=== PATIENT | female | born 1965 | race American Indian/Alaskan Native ===

== ENCOUNTER 2016-11-23 03:45 | Inpatient (IN) | payer OTHER ==
[2016-11-23 04:44] LABS: Basophils % (Auto) 0.6 % (0.0-1.8); Eosinophils % (Auto) 3.5 % (0.0-4.3); Hematocrit 37.5 % (30.3-42.9); Hemoglobin 11.9 gm/dl (10.1-14.3); Mean Corpuscular HGB Conc 32 % (30-34); Mean Corpuscular Volume 76 fl (79-97); Platelet Count 284 K/mm3 (140-440); Red Blood Count 4.96 M/mm3 (3.65-5.03); Red Cell Distribution Width 16.7 % (13.2-15.2); White Blood Count 6.2 K/mm3 (4.5-11.0)
[2016-11-23 04:53] LABS: Mean Corpuscular Hemoglobin 24 pg (28-32)
[2016-11-23 05:01] LABS: Anion Gap 18 mmol/L; Blood Urea Nitrogen 16 mg/dL (7-17); Calcium 8.9 mg/dL (8.4-10.2); Carbon Dioxide 25 mmol/L (22-30); Chloride 100.2 mmol/L (98-107); Glucose 116 mg/dL (65-100); Potassium 3.6 mmol/L (3.6-5.0); Sodium 140 mmol/L (137-145)
[2016-11-23] MEDS ORDERED: BABY ASPIRIN PO ONE (05:39)
--- NOTE | 2016-11-23 10:33 | Emergency Department Report ---
ED Chest Pain HPI - General Chief Complaint: Chest Pain Stated Complaint: CHEST PAIN Time Seen by Provider: 11/23/16 10:20 Source: patient, RN notes reviewed, old records reviewed Mode of arrival: Ambulatory Limitations: No Limitations - History of Present Illness Initial Comments: This is a 51-year-old female. She is previously unknown to me. Her primary care doctor is Dr. Palacios. Past medical history includes hypertension, obesity, panic attacks. The patient presents to the ER complaining of chest pain. The chest pain is central, and left side of the chest wall. The patient reports that radiates to the back and neck. There is mild shortness of breath. There is mild nausea. There is no diaphoresis. The chest pain worsens with palpation, and decreases with rest. There is no leg pain. There is no leg swelling. No recent trips greater than 4 hours. No recent hospitalizations. The patient does report a recent [address] trip to [place]. The patient indicates that she thinks she had a negative exercise stress test in [place] at [facility]. She also thinks that she may have had a negative stress test with Dr. Orellana, but she is not certain. MD Complaint: chest pain -: Gradual Onset: during rest Pain Location: left chest Pain Radiation: back, neck Severity scale (0 -10): 5 Quality: aching Improves With: rest Worsens With: palpation re: vomting, dyspnea Treatments Prior to Arrival: none Aspirin use within the Past 7 Days: (1) Yes (given asa in the er prior to my arrival) - Related Data Home Medications Medication Instructions Recorded Confirmed Last Taken Fexofenadine HCl 180 mg PO DAILY 11/23/16 11/23/16 11/22/16 Hydrochlorothiazide [HCTZ] 25 mg PO DAILY PRN 11/23/16 11/23/16 11/22/16 busPIRone [Buspar] 15 mg PO DAILY 11/23/16 11/23/16 11/22/16 Allergies Allergy/AdvReac Type Severity Reaction Status Date / Time amoxicillin [Amoxicillin] Allergy Shortness Verified 04/10/15 02:49 of Breath ampicillin Allergy Shortness Verified 04/10/15 02:49 of Breath codeine Allergy Shortness Verified 04/10/15 02:49 of Breath guaifenesin [From Robitussin] Allergy Swelling Verified 04/10/15 02:49 loperamide HCl Allergy Rash Verified 04/10/15 02:49 [From Imodium A-D] morphine Allergy Shortness Verified 04/10/15 02:49 of Breath Penicillins Allergy Shortness Verified 04/10/15 02:49 of Breath Sulfa (Sulfonamide Allergy Hives Verified 04/10/15 02:49 Antibiotics) Tetracyclines Allergy Shortness Verified 04/10/15 02:49 of Breath nyquill Allergy Rash Uncoded 04/10/15 02:49 ALBER score - Alber Score Age > 65: (0) No Aspirin use within the Past 7 Days: (0) No 3 or more CAD Risk Factors: (0) No 2 or more Angina events in past 24 hrs: (1) Yes Known CAD with more than 50% Stenosis: (0) No Elevated Cardiac Markers: (0) No ST Deviation Greater than 0.5mm: (0) No ALBER Score: 1 ED Review of Systems ROS: Stated complaint: CHEST PAIN Other details as noted in HPI Constitutional: malaise. denies: diaphoresis Eyes: denies: vision change ENT: denies: epistaxis Respiratory: shortness of breath Cardiovascular: chest pain Gastrointestinal: denies: abdominal pain Genitourinary: denies: dysuria Musculoskeletal: denies: back pain Skin: denies: lesions Neurological: denies: weakness Psychiatric: denies: depression ED Past Medical Hx - Past Medical History Hx Hypertension: Yes (no meds) Hx Heart Attack/AMI: No Hx GERD: Yes Hx Liver Disease: No Hx Renal Disease: No Hx Seizures: No Hx Psychiatric Treatment: Yes (panic attacks) Hx Asthma: Yes (seasonal) Hx COPD: No Hx HIV: No Additional medical history: lymph nodes - Surgical History Hx Cholecystectomy: Yes () Hx Breast Surgery: Yes Additional Surgical History: csection x 2, breast reduction / lymph node removal w skin graft - Social History Smoking Status: Never Smoker Substance Use Type: None - Medications Home Medications: Home Medications Medication Instructions Recorded Confirmed Last Taken Type Fexofenadine HCl 180 mg PO DAILY 11/23/16 11/23/16 11/22/16 History Hydrochlorothiazide [HCTZ] 25 mg PO DAILY PRN 11/23/16 11/23/16 11/22/16 History busPIRone [Buspar] 15 mg PO DAILY 11/23/16 11/23/1617 History ED Physical Exam - General Limitations: No Limitations General appearance: alert, in no apparent distress - Head Head exam: Present: atraumatic, normocephalic - Eye Eye exam: Present: normal appearance, EOMI. Absent: nystagmus - ENT ENT exam: Present: normal exam, normal orophraynx, mucous membranes moist, normal external ear exam - Neck Neck exam: Present: normal inspection, full ROM. Absent: tenderness, meningismus - Respiratory Respiratory exam: Present: normal lung sounds bilaterally, chest wall tenderness. Absent: respiratory distress, wheezes, rales, rhonchi, stridor, accessory muscle use, decreased breath sounds - Cardiovascular Cardiovascular Exam: Present: regular rate, normal rhythm, normal heart sounds. Absent: bradycardia, tachycardia, irregular rhythm, systolic murmur, diastolic murmur, rubs, gallop - GI/Abdominal GI/Abdominal exam: Present: soft, normal bowel sounds. Absent: distended, tenderness, guarding, rebound, rigid, pulsatile mass - Extremities Exam Extremities exam: Present: normal inspection, full ROM, normal capillary refill. Absent: tenderness, pedal edema, joint swelling, calf tenderness - Back Exam Back exam: Present: normal inspection, full ROM. Absent: tenderness, CVA tenderness (R), CVA tenderness (L), muscle spasm, paraspinal tenderness, vertebral tenderness - Neurological Exam Neurological exam: Present: alert, oriented X3, normal gait, other (Extraocular movements intact. Tongue midline. No facial droop. Facial sensation intact to light touch in the V1, V2, V3 distribution bilaterally. 5 and 5 strength in 4 extremities.. Sensation is intact to light touch in 4 extremities.). Absent : motor sensory deficit - Psychiatric Psychiatric exam: Present: normal affect, normal mood - Skin Skin exam: Present: warm, dry, intact, normal color. Absent: rash ED Course Vital Signs 11/23/16 11/23/16 11/23/16 04:05 08:17 09:18 Temperature 97.9 F Pulse Rate 67 64 Respiratory 20 18 14 Rate Blood Pressure 150/79 Blood Pressure 150/79 [Left] O2 Sat by Pulse 99 100 Oximetry 11/23/16 11/23/16 11/23/16 09:20 09:30 09:40 Temperature Pulse Rate 63 61 59 L Respiratory 23 12 20 Rate Blood Pressure 164/77 164/77 164/77 Blood Pressure [Left] O2 Sat by Pulse 97 98 98 Oximetry 11/23/16 11/23/16 11/23/16 09:50 10:00 10:10 Temperature Pulse Rate 61 64 63 Respiratory 16 29 H 9 L Rate Blood Pressure 164/77 149/87 149/87 Blood Pressure [Left] O2 Sat by Pulse 97 95 97 Oximetry 11/23/16 11/23/16 11/23/16 10:20 10:40 10:50 Temperature Pulse Rate 64 69 Respiratory 15 12 31 H Rate Blood Pressure 149/87 149/87 149/87 Blood Pressure [Left] O2 Sat by Pulse 98 98 95 Oximetry 11/23/16 11/23/16 11/23/16 11:00 11:10 11:20 Temperature Pulse Rate Respiratory 18 14 12 Rate Blood Pressure 146/82 149/87 149/87 Blood Pressure [Left] O2 Sat by Pulse 96 98 98 Oximetry 11/23/16 11/23/16 11/23/16 11:30 11:40 11:50 Temperature Pulse Rate Respiratory 27 H 26 H 19 Rate Blood Pressure 149/87 149/87 146/82 Blood Pressure [Left] O2 Sat by Pulse 97 98 97 Oximetry 11/23/16 12:00 Temperature Pulse Rate Respiratory 12 Rate Blood Pressure 146/82 Blood Pressure [Left] O2 Sat by Pulse 98 Oximetry - Reevaluation(s) Reevaluation #1: 11/23/16 11:07 differential diagnosis: acs, costochronditis, pneumonia, GERD, gastritis, pulmonary embolus, anxiety Assessment and plan: 51-year-old female with chest pain, and a few vascular risk factors. Chest pain has some clinically atypical aspects and some clinically atypical aspects. There is a reproducible component. Multiple negative troponins. EKG is nonspecific. We do not have access to her old stress test, she has had negative CT scans in the past that have been negative for pulmonary embolus. She is low risk by well's criteria. We will consult cardiology, Dr. Jake Marin, practitioner. I am waiting for their recommendations for acute coronary syndrome risk stratification. Reevaluation #2: 11/23/16 11:29 Cardiology cannot find any medical records. They recommend admission to the hospital for echocardiogram, stress test. They will follow. Case is discussed with the Hospital physician, Dr. Browning, who accepts patient to his service. D-dimer is still pending. Patient to remain in the ER pending results of the d-dimer. ED Medical Decision Making - Lab Data Result diagrams: 11/23/16 04:24 11/23/16 04:24 Vital Signs 11/23/16 11/23/16 11/23/16 04:05 08:17 09:18 Temperature 97.9 F Pulse Rate 67 64 Respiratory 20 18 14 Rate Blood Pressure 150/79 Blood Pressure 150/79 [Left] O2 Sat by Pulse 99 100 Oximetry 11/23/16 11/23/16 09:20 09:30 Temperature Pulse Rate 63 61 Respiratory 23 12 Rate Blood Pressure 164/77 164/77 Blood Pressure [Left] O2 Sat by Pulse 97 98 Oximetry Vital Signs 11/23/16 11/23/16 11/23/16 04:05 08:17 09:18 Temperature 97.9 F Pulse Rate 67 64 Respiratory 20 18 14 Rate Blood Pressure 150/79 Blood Pressure 150/79 [Left] O2 Sat by Pulse 99 100 Oximetry 11/23/16 11/23/16 09:20 09:30 Temperature Pulse Rate 63 61 Respiratory 23 12 Rate Blood Pressure 164/77 164/77 Blood Pressure [Left] O2 Sat by Pulse 97 98 Oximetry Lab Results 11/23/16 11/23/16 11/23/16 Range/Units 04:24 04:24 07:17 WBC 6.2 (4.5-11.0) K/mm3 RBC 4.96 (3.65-5.03) M/mm3 Hgb 11.9 (10.1-14.3) gm/dl Hct 37.5 (30.3-42.9) % MCV 76 L (79-97) fl MCH 24 L (28-32) pg MCHC 32 (30-34) % RDW 16.7 H (13.2-15.2) % Plt Count 284 (140-440) K/mm3 Lymph % (Auto) 29.1 (13.4-35.0) % [place] % (Auto) 7.0 (0.0-7.3) % Eos % (Auto) 3.5 (0.0-4.3) % Baso % (Auto) 0.6 (0.0-1.8) % Lymph # 1.8 (1.2-5.4) K/mm3 [place] # 0.4 (0.0-0.8) K/mm3 Eos # 0.2 (0.0-0.4) K/mm3 Baso # 0.0 (0.0-0.1) K/mm3 Seg Neutrophils % 59.8 (40.0-70.0) % Seg Neutrophils # 3.7 (1.8-7.7) K/mm3 Sodium 140 (137-145) mmol/L Potassium 3.6 (3.6-5.0) mmol/L Chloride 100.2 (98-107) mmol/L Carbon Dioxide 25 (22-30) mmol/L Anion Gap 18 mmol/L BUN 16 (7-17) mg/dL Creatinine 0.8 (0.7-1.2) mg/dL Estimated GFR > 60 ml/min BUN/Creatinine Ratio 20.00 % Glucose 116 H (65-100) mg/dL Calcium 8.9 (8.4-10.2) mg/dL Troponin T < 0.010 < 0.010 (0.00-0.029) ng/mL 11/23/16 Range/Units 10:10 WBC (4.5-11.0) K/mm3 RBC (3.65-5.03) M/mm3 Hgb (10.1-14.3) gm/dl Hct (30.3-42.9) % MCV (79-97) fl MCH (28-32) pg MCHC (30-34) % RDW (13.2-15.2) % Plt Count (140-440) K/mm3 Lymph % (Auto) (13.4-35.0) % [place] % (Auto) (0.0-7.3) % Eos % (Auto) (0.0-4.3) % Baso % (Auto) (0.0-1.8) % Lymph # (1.2-5.4) K/mm3 [place] # (0.0-0.8) K/mm3 Eos # (0.0-0.4) K/mm3 Baso # (0.0-0.1) K/mm3 Seg Neutrophils % (40.0-70.0) % Seg Neutrophils # (1.8-7.7) K/mm3 Sodium (137-145) mmol/L Potassium (3.6-5.0) mmol/L Chloride (98-107) mmol/L Carbon Dioxide (22-30) mmol/L Anion Gap mmol/L BUN (7-17) mg/dL Creatinine (0.7-1.2) mg/dL Estimated GFR ml/min BUN/Creatinine Ratio % Glucose (65-100) mg/dL Calcium (8.4-10.2) mg/dL Troponin T < 0.010 (0.00-0.029) ng/mL - EKG Data 11/23/16 11:11 EKG #1: Normal sinus, 83 bpm, normal axis, QTC 451 ms, atrial enlargement, nonspecific T-wave abnormality, not morphologically consistent with STEMI. EKG #2: Normal sinus, 62 bpm, normal axis, QTC 454 ms, not morphologically consistent with STEMI, EKGs appear to be unchanged from prior EKG from 2015. - Radiology Data Radiology results: report reviewed, image reviewed interpreted by me: Two-view x-ray of the chest is negative for acute disease CT scan of chest is negative for acute disease Critical care attestation.: If time is entered above; I have spent that time in minutes in the direct care of this critically ill patient, excluding procedure time. ED Disposition Clinical Impression: Chest pain, Dyspnea Disposition: OP ADMITTED IP TO THIS HOSP Is pt being admited?: Yes Condition: Good
--- NOTE | 2016-11-23 11:07 | XRay Report ---
CHEST 2 VIEWS INDICATION: Chest pain, left-sided. COMPARISON: 07/09/2016 FINDINGS: PA and lateral chest radiographs demonstrate limited inspiration with mild exaggerated cardiomediastinal silhouette and mildly crowded markings centrally and some toward the bases. No dense focal consolidation, pleural effusion or CHF however. Stable mild bony degenerative changes. Probable cholecystectomy clips. CONCLUSION: No acute chest process or significant interval change, as described. Thank you for the opportunity to participate in this patient's care.
--- NOTE | 2016-11-23 11:49 | Admit Criteria Form ---
Admission Criteria Documentation: CARDIOLOGY GRG Clinical Indications for Admission to Inpatient Care ( Place 'X' for any and all applicable criteria): Hospital admission is needed for appropriate care of the patient because of ANY ONE of the following (1): [ ] I. Hemodynamic instability as indicated by ALL of the following (1)(2)(3) (4)(5) [ ]a) Vital signs or other findings not as expected for chronic patient condition or baseline [ ]b) Instability indicated by ANY ONE of the following: [ ]i) Hypotension [ ]ii) Symptomatic Tachycardia unresponsive to treatment ( e.g., analgesia, fluids, sedation as indicated) [ ]iii) Inadequate perfusion indicated by ANY ONE of the following: [ ] 1) Lactic acidosis (> 2 mmol/L) [ ] 2) New abnormal capillary refill (> 3 seconds) [ ] 3) Reduced urine output [ ] 4) New altered mental status [ ]iv) Orthostatic vital sign changes unresponsive to treatment (e.g., fluids) [ ]v) IV inotropic or vasopressor medication required to maintain adequate blood pressure or perfusion [ ] II. Severe heart failure as indicated by ANY ONE of the following(17)(18) [ ]a) Respiratory distress [ ]b) Hypotension [ ]c) Anasarca (refractory to outpatient therapy) [ ]d) Cardiac arrhythmias of immediate concern [ ]e) Myocardial ischemia [ ] III. Cardiac arrhythmias or findings of immediate concern indicated by ANY ONE of the following (19)(20): [ ] a) Heart rhythms that are inherently dangerous or unstable indicated by ANY ONE of the following (21)(22)(23): [ ] i) Resuscitated ventricular fibrillation or cardiac arrest [ ] ii) Ventricular escape rhythm [ ] iii) Sustained ventricular tachycardia (30 seconds or more of ventricular rhythm at greater than 100 beats per minute) [ ] iv) Nonsustained ventricular tachycardia and ANY ONE of the following: [ ] 1) Suspected cardiac ischemia as cause or consequence of ventricular tachycardia [ ] 2) In setting of acute myocarditis [ ] b) Unstable cardiac conduction defects indicated by ANY ONE of the following(23)(24)(25) [ ] i) Type II second-degree atrioventricular block [ ]ii) Third-degree atrioventricular block [ ]iii) New-onset left bundle branch block with suspected myocardial ischemia [ ]c) Any heart rhythm and ANY ONE of the following (21)(22)(26)(27) (28) [ ] i) Continuous long-term ECG monitoring needed (e.g., initiation of drug requiring monitoring for more than 24 hours) [ ] ii) Patient has automatic implanted cardioverter defibrillator that is repeatedly firing, malfunctioning, or in need of immediate adjustment of settings beyond the scope of ambulatory or observation care [ ]d) Heart rhythms of concern due to ANY ONE of the following: [ ] i) Hypotension [ ] ii) Respiratory distress [ ] iii) Association with other significant symptoms (e.g., bradycardia with syncope or ongoing dizziness, supraventricular tachycardia with chest pain (14)(15)(17) [ ] IV. Monitoring for cardiac contusion beyond the scope of observation care needed [A](30)(31)(32) [ ] V. Surgical or device complication (e.g., valve replacement complication , pacemaker dysfunction) (35)(41)(44)(45)(46) [ ] . Inpatient palliative care needed. [B](49) Also use Inpatient Palliative Care Criteria [ ] VII. Nonbacterial thrombotic (marantic) endocarditis (36)(43)(47)(48) [x ] VIII. Cardiology condition, symptom, or finding for which emergency and observation care has failed or are not considered appropriate. [ ] IX. Acute valvular disease requiring inpatient as indicated by ANY ONE of the following (41) [ ]a) Acute valvular regurgitation (42) [ ]b) Noninfectious valvulitis (43) [ ]c) Obstructive valve thrombosis [ ]d) Paravalvular leak [ ]e) Other significant valvular disorder remaining after emergency or observation level of care (as appropriate) [ ]X. Pericardial disease requiring inpatient treatment as indicated by ANY ONE of the following (33)(34)(35)(36)(37) [ ]a) Suspected tamponade (38)(39)(40) [ ]b) Hemopericardium [ ]c) Other significant pericardial disorder remaining after emergency or observation level of care (as appropriate) [ ] XI. Cardiac ischemia beyond scope of emergency and observation care. [ ] XII. Hypertension requiring inpatient treatment as indicated by ANY ONE of the following (6)(7)(8) [ ]a) SBP greater than 220 mm Hg or DBP greater than 120 mmHg despite treatment [ ]b) SBP greater than 140 mm Hg or DBP greater than 100 mm Hg with evidence of acute end organ damage as indicated by ANY ONE of the following [ ] i) Altered mental status [ ] ii) Acute renal failure as indicated by new onset of ANY ONE of the following (9)(10)(11)(12)(13) [ ]1) 3-fold rise in serum creatinine from baseline [ ]2) Serum creatinine greater than 4 mg/dL ( 354 micromoles/L) with acute rise greater than 0.5 mg/dL (44.2 micromoles/L) [ ]3) Reduction of more than 75% in estimated glomerular filtration rate from baseline [ ]4) Estimated glomerular filtration rate less than 35 mL/min/1.73m2 (0.59 mL/sec/1.73m2) in child up to 18 years of age [ ]5) Cessation of urine output indicated by ALL of the following [ ]A. Adequate volume status [ ]B. Inadequate urine output as indicated by ANY ONE of the following [ ]a. Urine output less than 0.3 mL/kg/hr for 24 hours [ ]b. Anuria (urine output less than 0.1 mL/kg/hr) for 12 hours [ ] iii) Aortic dissection [ ] iv) Myocardial Ischemia [ ] v) Left ventricular heart failure [ ]vi) Retinal Hemorrhage [ ]vii) Other significant finding [ ]c) Hypertension in child requiring inpatient treatment as indicated by ALL of the following(14)(15)(16) [ ] i) Outpatient treatment not effective, not available, or not appropriate [ ]ii) SBP or DBP greater than 95th percentile for age [ ]iii) Evidence of acute end organ damage as indicated by ANY ONE of the following [ ]1) Altered mental status [ ]2) Acute renal failure as indicated by new onset of ANY ONE of the following(9)(10)(11)(12)(13) [ ]A. 3-fold rise in serum creatinine from baseline [ ]B. Serum creatinine greater than 4 mg/dL (354 micromoles/L) with acute rise greater than 0.5 mg/dL (44.2 micromoles/L) [ ]C. Reduction of more than 75% in estimated glomerular filtration rate from baseline [ ]D. Estimated glomerular filtration rate less than 35 mL/min/1.73m2 (0.59 mL/sec/1.73m2) in child up to 18 years of age [ ]E. Cessation of urine output indicated by ALL of the following [ ]a. Adequate volume status [ ]b. Inadequate urine output as indicated by ANY ONE of the following [ ]i) Urine output less than 0.3 mL/kg/hr for 24 hours [ ]ii) Anuria ( urine output less than 0.1 mL/kg/hr) for 12 hours [ ]3) Severe headache [ ]4) Visual disturbance [ ]5) Retinal hemorrhage [ ]6) Other significant finding [ ]XIII. Complications of transplanted heart indicated by ANY ONE of the following(61): [ ]a) Acute graft rejection requiring inpatient management (eg, intravenous immunosuppression)(62)(63) [ ]b) Acute graft heart failure indicated by ANY ONE of the following(64): [ ]i) Hemodynamic instability [ ]ii) Cardiac arrhythmias of immediate concern [ ]iii) Pulmonary edema that is very severe (eg, mechanical ventilation needed, imminent or likely, need for 100% oxygen to keep oxygen saturation above 90%) [ ]iv) Pulmonary edema that is persistent as indicated by ALL of the following: [ ]1) New need for oxygen therapy to keep oxygen saturation above 90% (or increased FiO2 need from baseline) [ ]2) Has not improved sufficiently with emergency department or observation care IV diuretics or other heart failure treatments[E] [ ]v) Altered mental status that is severe or persistent [ ]vi) Increased creatinine (new on laboratory test) with reduction of more than 50% in estimated glomerular filtration rate from baseline [ ]vii) Progressively (ongoing) rising creatinine (known from past laboratory test) with reduction of more than 25% in estimated glomerular filtration rate from baseline [ ]viii) Acute renal failure [ ]ix) Acute peripheral ischemia (eg, examination shows pulseless, cool, mottled, or cyanotic extremity) [ ]x) Pulmonary artery catheter monitoring needed [ ]xi) Other sign or symptom of heart failure requiring inpatient treatment (ie, too severe or not responsive to outpatient and observation care treatment) [ ]c) Infection requiring inpatient management (eg, Hemodynamic instability, need for intravenous antimicrobial treatment)(66)(67)(68)(69)(70) [ ]d) Cardiac allograft vasculopathy requiring inpatient management ( eg evidence of cardiac ischemia)(71) [ ]e) Other complication of transplanted heart (eg, stroke, severe pulmonary hypertension, severe valvular dysfunction) requiring inpatient management(72) The original [facility] [employer] content created by [facility] has been revised. The portions of the content which have been revised are identified through the use of italic text or in bold, and [facility] has neither reviewed nor approved the modified material. All other unmodified content is copyright [facility] [employer]. Please see references footnoted in the original [facility] [employer] edition 2016 Admission Criteria Met: Yes
--- NOTE | 2016-11-23 11:55 | Admit Criteria Form ---
Admission Criteria Documentation: CHEST PAIN Clinical Indications for Admission to Inpatient Care (Place 'X' for any and all applicable criteria): Admission is indicated for chest pain and ANY ONE of the following(1)(2)(3)(4)(5 ): [ ]I. Angina with acute coronary syndrome (Also use Myocardial Infarction or Angina guideline) [ ]II. Hemodynamic instability [ ]III. Angina needing acute intervention as indicated by ALL of the following( 11)(12): [ ]a) Unstable angina is present as indicated by angina that is ANY ONE of the following: [ ]i) New onset [ ]ii) Nocturnal [ ]iii) Prolonged at rest [ ]iv) Progressive [ ]b) Angina warrants acute intervention as indicated by ANY ONE of the following: [ ]i) Recurrent angina (e.g, not responding as previously to treatment) [ ]ii) Angina at rest or with low-level activities despite initial medical therapy [ ]iii) New or presumably new ST-segment depression on ECG [ ]iv) Signs or symptoms of heart failure (eg, dyspnea, pulmonary edema) [ ]v) New or worsening mitral regurgitation [ ]vi) Hemodynamic instability [ ]vii) Dangerous arrhythmia (eg, sustained ventricular tachycardia) [ ]viii) History of percutaneous coronary intervention within 6 months [ ]ix) History of coronary artery bypass graft surgery [ ]x) ALBER risk score of 2 or greater[A] [ ]xi) History of Diabetes(14) [ ]xii) High-risk cardiac ischemia findings on noninvasive testing (e.g, echocardiogram, treadmill testing, nuclear scan) [ ]xiii) Chronic renal insufficiency (ie, estimated GFR less than 60 mL/min/1.732m) [ ]xiv) Left ventricular ejection fraction less than 40% [ ]IV. Evidence of DE (eg, cardiac biomarkers positive, ST-segment elevation on ECG) also use Myocardial Infarction Criteria Form. [ ]V. Pulmonary edema [ ]. Respiratory distress [ ]VII. Chest pain indicative of serious diagnosis other than coronary artery disease (eg, aortic dissection) [ ]VIII. Contraindications and/or Inappropriate clinical situations for Observational Care in patients with Chest Pain, when ANY ONE of the following is required: [ ]a) Patient with risk factor for pulmonary embolism, acute coronary syndrome and myocardial infarction (18) [ ]b) Patient with Pulmonary embolism require an average LOS of 4.3 days, therefore emergency department observation management is inappropriate 18,23 [ ]c) Painful condition/s in the elderly, have the highest rate of recidivism after emergency department observation management (10.8%) 20,21,22 [ ]d) Elevated cardiac biomarker requires intensive and exhaustive care (19) [ ]IX. General contraindications and/or Inappropriate clinical situations for Observational Care in patients with Chest Pain, when ANY ONE of the following is required: [ ]a) Prediction of prolongation of LOS based on ANY ONE of the following may be considered as a contraindication for observational care 2, 3, 4, 5, 6, 7, 8, 9, 10, 11 [ ]i) Age > 65 yrs. [ ]ii) Patient arriving by ambulance [ ]iii) Patient with high acuity [ ]iv) Patient requiring vital sign monitoring [ ]v) Patient on IV medication [ ]b) Systolic blood pressures 180mmHg 3,12 [ ]c) Patient with altered mental status including delirium and other alteration of consciousness, (3) [ ]d) Patient whose discharge disposition will be to a shelter home or rehabilitation home should not be managed in Emergency Department Observation Unit. CMS rule requires 3 days hospital stay before such placement. 3,13 [ ]e) Patient with failure to thrive due to broad array of etiologies 3,16,17 [ ]f) Inability to ambulate 3,14 Extended stay beyond goal length of stay may be needed for (1)(28): [ ]a) Specific condition diagnosed after evaluation (eg, pulmonary embolism, aortic dissection) [ ]b) Unstable angina [ ]c) Continued suspicion of acute coronary syndrome with inability to complete needed cardiac evaluation (eg, patient clinically unable to undergo stress testing) [ ]d) Myocardial infarction (Contents from ANGINA and CHEST PAIN clinical indications for admission to inpatient care have been integrated in this form) The original [email or web address] content created by [email or web address] has been revised. The portions of the content which have been revised are identified through the use of italic text or in bold, and [facility] has neither reviewed nor approved the modified material. All other unmodified content is copyright [email or web address]. Please see references footnoted in the original [employer] edition 2016
[2016-11-23 11:56] LABS: INR 0.96 (0.87-1.13)
[2016-11-23] MEDS ORDERED: ATIVAN ONE (12:16)
[2016-11-23] MEDS ORDERED: NACL ONE (12:21)
[2016-11-23] MEDS ORDERED: ATIVAN IV ONE (12:29)
--- NOTE | 2016-11-23 14:05 | Consultation ---
History of Present Illness Consult date: 11/23/16 Requesting physician: DMITRIY BOJORQUEZ Consult reason: chest pain History of present illness: The patient is a 51-year-old female with a past medical history significant for hypertension, obesity, and anxiety. She is previously unknown to our practice. She presented with complaints of chest pain and shortness of breath 1 day prior to arrival. She describes her chest pain as a nonexertional, left-sided, intermittent, stabbing pain which did at times radiated into her left shoulder. She noted this pain yesterday afternoon for a brief period and then the pain spontaneously resolved. Yesterday evening she noted new onset orthopnea when she got into bed. She experienced orthopnea through the night and this is what caused her to present to the emergency department for further evaluation and management. On evaluation, she denies any chest pain, palpitations, nausea, vomiting, diaphoresis, dizziness, or syncope. She denies any precipitating factors. She reports a 30 pound weight gain over the past 4 months due to dieting and exercise. She denies any recent difficulty or cardiac complaints with activity. The patient indicates that she thinks she had a negative exercise stress test in [place] at [facility]. Past History Past Medical History: hypertension, other (obesity; anxiety) Social history: , lives with family. denies: smoking, alcohol abuse, prescription drug abuse Medications and Allergies Allergies Allergy/AdvReac Type Severity Reaction Status Date / Time amoxicillin [Amoxicillin] Allergy Shortness Verified 04/10/15 02:49 of Breath ampicillin Allergy Shortness Verified 04/10/15 02:49 of Breath codeine Allergy Shortness Verified 04/10/15 02:49 of Breath guaifenesin [From Robitussin] Allergy Swelling Verified 04/10/15 02:49 loperamide HCl Allergy Rash Verified 04/10/15 02:49 [From Imodium A-D] morphine Allergy Shortness Verified 04/10/15 02:49 of Breath Penicillins Allergy Shortness Verified 04/10/15 02:49 of Breath Sulfa (Sulfonamide Allergy Hives Verified 04/10/15 02:49 Antibiotics) Tetracyclines Allergy Shortness Verified 04/10/15 02:49 of Breath nyquill Allergy Rash Uncoded 04/10/15 02:49 Home Medications Medication Instructions Recorded Confirmed Last Taken Type Fexofenadine HCl 180 mg PO DAILY 11/23/16 11/23/16 11/22/16 History Hydrochlorothiazide [HCTZ] 25 mg PO DAILY PRN 11/23/16 11/23/16 11/22/16 History busPIRone [Buspar] 15 mg PO DAILY 11/23/16 11/23/16 11/22/16 History Review of Systems Constitutional: weight loss (30 lbs over 4 months d/t diet and exercise ), no fever, no chills, no sweats Ears, nose, mouth and throat: no ear pain, no nose pain, no sinus pressure, no sinus pain Cardiovascular: chest pain, orthopnea, shortness of breath, no palpitations, no rapid/irregular heart beat, no edema, no syncope, no lightheadedness, no dyspnea on exertion Respiratory: shortness of breath, no cough, no dyspnea on exertion, no congestion, no wheezing, no pain Gastrointestinal: no abdominal pain, no nausea, no vomiting, no diarrhea, no constipation Genitourinary Female: no pelvic pain, no flank pain, no dysuria, no urinary frequency, no urgency Musculoskeletal: no neck stiffness, no neck pain, no shooting arm pain, no arm numbness/tingling, no low back pain, no shooting leg pain, no leg numbness/ tingling, no redness of joints Integumentary: no rash, no pruritis, no redness, no sores, no wounds Neurological: no paralysis, no weakness, no parathesias, no numbness, no tingling, no seizures Psychiatric: anxiety Endocrine: no cold intolerance, no heat intolerance Hematologic/Lymphatic: no easy bruising, no easy bleeding, no lymphadenopathy Allergic/Immunologic: no urticaria, no wheezing, no persistent infections Physical Examination Vital Signs Temp Pulse Resp BP Pulse Ox 97.9 F 67 20 150/79 99 11/23/16 04:05 11/23/16 04:05 11/23/16 04:05 11/23/16 04:05 11/23/16 04:05 General appearance: no acute distress HEENT: Positive: PERRL, Normocephaly, Mucus Membranes Moist Neck: Positive: neck supple, trachea midline Cardiac: Positive: Reg Rate and Rhythm, S1/S2 Lungs: Positive: Normal Exam, clear to auscultation, Normal Breath Sounds Neuro: Positive: Grossly Intact, Cranial Nerve 2-12 Intact Abdomen: Positive: Unremarkable, Soft, Active Bowel Sounds. Negative: Tender Skin: Positive: Clear. Negative: Rash, Wound Musculoskeletal: No Fluid Collection, No Pain, Normal Range of Motion Extremities: Present: normal, upper extr. pulses, lower extr. pulses. Absent: edema Results 11/23/16 04:24 11/23/16 04:24 - Imaging and Cardiology Echo: pending EKG: report reviewed, image reviewed EKG interpretations - Telemetry EKG Rhythm: Sinus Rhythm - EKG Sinus rhythms and dysrhythmias: sinus rhythm Repolarization changes or abnormalities: nonspecific abnormality, ST segment, and/or T wave Assessment and Plan Assessment: Chest pain, atypical - ECG with NAF; troponin negative for AMI x 2 sets; currently resolved. Dyspnea / orthopnea HTN Anxiety Obesity Plan: Obtain echo. Obtain fasting lipid panel in AM. Resume home HCTZ. Consider addition of CCB if necessary for BP optimization. Plan for stress test in AM pending pt remains clinically and hemodyncamically stable overnight. Assessment and plan reviewed with pt and pt's at bedside. The patient has been seen in conjunction with Dr. Hernández who agrees with the assessment and plan of care.
--- NOTE | 2016-11-23 14:05 | Cat Scan Report ---
CTA CHEST: History: Chest pain, shortness of breath. Technique: Helical CT following IV contrast. Pulmonary embolus protocol. Sagittal and coronal reformatted images. Rotational MIP images. Findings: Contrast bolus is slightly limited by body habitus. No pulmonary embolus is identified. The thyroid gland, tracheobronchial tree, esophagus, heart, pericardium, mediastinal vessels, lung newman and bony thorax are unremarkable. Impression: No evidence for pulmonary embolus. Unremarkable CT chest with contrast. The
[2016-11-23] MEDS ORDERED: HCTZ PO PRN (20:36)
[2016-11-23] MEDS ORDERED: NON-FORMULARY (Fexofenadine Hcl [Fexofenadine Hcl] 180 MG) PO SCH (20:45)
[2016-11-23] MEDS ORDERED: DULCOLAX PR PRN (20:47)
[2016-11-23] MEDS ORDERED: TYLENOL PO PRN (20:47)
[2016-11-23] MEDS ORDERED: MILK OF MAGNESIA PO PRN (20:47)
[2016-11-23] MEDS ORDERED: PERCOCET 5/325 PO PRN (20:47)
[2016-11-23] MEDS ORDERED: ZOFRAN IV PRN (20:47)
[2016-11-23] MEDS ORDERED: AMBIEN PO PRN (20:47)
[2016-11-23] MEDS ORDERED: MORPHINE IV PRN (20:47)
[2016-11-23] MEDS ORDERED: SODIUM CHLORIDE FLUSH SYRINGE 10 ML IV PRN (20:50)
--- NOTE | 2016-11-23 20:54 | Event Note ---
Date: 11/23/16 See H/p in reports Chest pain=r/o MT protocol DDX ACS/costochondritis/GERD Morbid obesity.
[2016-11-23] MEDS: CLARITIN PO SCH (22:15)
[2016-11-23] MEDS: BUSPAR PO SCH (22:16)
[2016-11-23 22:18] LABS: Creatine Kinase 186 units/L (30-135); Creatine Kinase MB 2.1 ng/mL (0.0-4.0)
--- NOTE | 2016-11-23 22:31 | History and Physical Report ---
CHIEF COMPLAINT: Left-sided chest pain. HISTORY OF PRESENT ILLNESS: This is a 51-year-old -Italian female, morbidly obese, hypertension, anxiety, who comes in for left-sided chest pain and shortness of breath of 1-day duration . Her chest pain is nonexertional, left-sided intermittent stabbing pain, which did at times radiated to the left shoulder. The pain is intermittent. Pain is about 5 on a scale of 1-10. Also, reported lost about 30 pounds in the last 4 months due to exercise. No shortness of breath on exertion present. PAST MEDICAL HISTORY: As mentioned, significant for hypertension, obesity, and anxiety disorder. SOCIAL HISTORY: , lives with family. Denies smoking, alcohol abuse, or prescription drug abuse. FAMILY HISTORY: Significant for hypertension. PAST SURGICAL HISTORY: None. CURRENT MEDICATIONS: Hydrochlorothiazide 25 mg once a day, BuSpar 15 mg once a day, fexofenadine 180 mg p.o. daily. ALLERGIES: PENICILLIN, MORPHINE AND SULFA DRUGS, TETRACYCLINE AND NYQUIL. REVIEW OF SYSTEMS: CONSTITUTIONAL: Lost about 30 pounds over 4 months due to diet and exercise. No fever, no chills, no sweats. HEENT: No sore throat. No postnasal drip. CARDIOVASCULAR: Chest pain present. Slight shortness of breath present. No palpitations. No diaphoresis. RESPIRATORY SYSTEM: Shortness of breath present. No cough, no dyspnea on exertion. No congestion. No wheezing. GASTROINTESTINAL: No nausea, no vomiting, no diarrhea. No constipation. GENITOURINARY SYSTEM: No flank pain, no urinary frequency, no urgency. MUSCULOSKELETAL SYSTEM: No neck stiffness. No neck pain, no shooting arm pain. INTEGUMENTARY: No rash, no pruritus, no redness, no thrush, no wounds. NEUROLOGIC SYSTEM: No paralysis, no weakness. No paresthesias. PSYCHIATRIC: No anxiety present. ENDOCRINE: No cold intolerance or heat intolerance. HEMATOLOGIC/LYMPHATIC: No easy bruising, no easy bleeding. No lymphadenopathy. ALLERGIES/IMMUNOLOGIC: No urticaria, no wheezing. No persistent infections. A 14-point review of systems was done. PHYSICAL EXAMINATION: GENERAL: Middle-aged female, well-developed, well-nourished, moderately obese, eating fast food lot of time during examination. VITAL SIGNS: Blood pressure is 138/69, temperature is 98.2, pulse is 71, respirations 20, O2 sats 94. HEENT: Unremarkable. Pupils equal and reactive. NECK: Supple, no lymphadenopathy, no thyromegaly. LUNGS: Clear to auscultation and percussion. Good air entry. CARDIOVASCULAR: S1, S2 heard. No gallop, no murmur, no rub. Apical impulse in left fifth intercostal space in midclavicular line. ABDOMEN: Soft and benign. No hepatosplenomegaly. No guarding, no rigidity. Hernial orifices are normal. EXTREMITIES: Good pedal pulses. No pedal edema. CENTRAL NERVOUS SYSTEM: Alert and oriented x 4. Nonfocal exam. SKIN: Normal. LABORATORY DATA: White count is 6200, H and H is 11.9 and 37.5, platelet count is 264. Protime is 12.7. INR is 0.96. D-dimer is 264.68. Sodium is 140, potassium is 3.6, chloride is 100, BUN and creatinine 16 and 0.8, glucose is 116, calcium is 8.9. Troponin is less than 0.010. EKG shows normal sinus rhythm, 62 per minute, left atrial enlargement. T-wave abnormalities. ASSESSMENT AND PLAN: 1. Chest pain, rule out myocardial infarction and differential diagnosis of costochondritis, gastroesophageal reflux disease, and acute coronary syndrome . I am more in favor of gastroesophageal reflux disease secondary to morbid obesity. We will start her on PPIs. 2. Hypertension. Continue hydrochlorothiazide. 3. Anxiety. Continue BuSpar. 4. Obesity. The patient is working on losing weight, the patient lost 30 pounds. Continue the same. 5. Deep venous thrombosis prophylaxis. Lovenox 40 mg subcutaneous daily. JOB# [id number] HUMAIRA/JAMES MCHUGH
[2016-11-24 03:47] LABS: Basophils % (Auto) 0.4 % (0.0-1.8); Hemoglobin 12.9 gm/dl (10.1-14.3); Mean Corpuscular HGB Conc 32 % (30-34); Mean Corpuscular Volume 75 fl (79-97); Platelet Count 306 K/mm3 (140-440); Red Blood Count 5.36 M/mm3 (3.65-5.03); Red Cell Distribution Width 16.8 % (13.2-15.2)
[2016-11-24 03:52] LABS: Mean Corpuscular Hemoglobin 24 pg (28-32)
[2016-11-24 04:03] LABS: Anion Gap 19 mmol/L; BUN/Creatinine Ratio 18.75; Blood Urea Nitrogen 15 mg/dL (7-17); Calcium 8.8 mg/dL (8.4-10.2); Carbon Dioxide 26 mmol/L (22-30); Chloride 98.5 mmol/L (98-107); Glucose 96 mg/dL (65-100); Potassium 3.6 mmol/L (3.6-5.0); Sodium 140 mmol/L (137-145)
[2016-11-24 04:05] LABS: Creatine Kinase MB 2.1 ng/mL (0.0-4.0)
[2016-11-24 04:08] LABS: Creatine Kinase 188 units/L (30-135)
[2016-11-24 04:40] LABS: Cholesterol 165 mg/dL (50-199); HDL Cholesterol 51 mg/dL (40-59); LDL Cholesterol,Direct 101 mg/dL (50-130); Triglycerides 65 mg/dL (2-149)
--- NOTE | 2016-11-24 09:59 | Discharge Summary ---
Providers - Providers Date of Admission: 11/23/16 11:30 Date of discharge: 11/24/16 Attending physician: CARLIE HARRISON MD 11/23/16 Consult to Cardiac Rehabilitation [CONS] Routine Reason For Exam: Phase I 11/23/16 20:47 Consult to Physician [CONS] Routine Consulting Provider: VJ ADAMS Reason For Exam: Chest pain Place consult to:: VJ ADAMS Notified:: Spoke with Kavita from answering service Phone number called:: [phone] Was contact made?: Yes If yes, spoke with:: Kavita Time called:: 06:21 Primary care physician: VOCATIONAL TECHNICAL EDUCATION DIRECTOR Hospitalization Reason for admission: chest pain Condition: Good Hospital course: Patient is a 51-year-old female with history of morbid obesity, anxiety, hypertension presented to the hospital complaining of left-sided chest pain or shortness of breath. Although she reports that this has been going on for about a week ago for evaluation she stated this has been ongoing for about a month. She had recently started what she calls a 6Scan Fast about 2 months ago. Cardiology was consulted to see the patient this although this was atypical. Patient did proceed to have a stress test reported that she was lost before being. We did discuss with cardiology and they felt pretty confident that this is noncardiac in nature and wanted to follow the patient's in the office in about a week or 2. Patient's symptoms also improve the pain was reproducible I believe this is more likely costochondritis. She is clinically stable at this time for discharge. She reports that she has lost about 20 pounds of weight since then and have fasting routine. I've also recommended that she gets routine laboratory exams to make sure her electrolytes are stable. I'll also recommended a sleep study outpatient. Discharge diagnosis * Atypical chest pain likely secondary to costochondritis * Morbid obesity BMI 52.5 * Hypertension * Anxiety * Obesity related hypoventilation syndrome Disposition: DISCHARGED TO HOME OR SELFCARE Time spent for discharge: 35 mins Core Measure Documentation - Palliative Care Palliative Care/ Comfort Measures: Not Applicable - Core Measures Any of the following diagnoses?: none - VTE Discharge Requirements Deep Vein Thrombosis/Pulmonary Embolism Present on Admission: No Exam - Physical Exam Narrative exam: VITAL SIGNS: Reviewed. GENERAL: The patient appeared well nourished and normally developed. Vital signs as documented. HEAD: No signs of head trauma. EYES: Pupils are equal. Extraocular motions intact. EARS: Hearing grossly intact. MOUTH: Oropharynx is normal. NECK: No adenopathy, no JVD. CHEST: Chest with clear breath sounds bilaterally. No wheezes, rales, or rhonchi. CARDIAC: Regular rate and rhythm. S1 and S2, without murmurs, gallops, or rubs. VASCULAR: No Edema. Peripheral pulses normal and equal in all extremities. ABDOMEN: Soft, without detectable tenderness. No sign of distention. No rebound or guarding, and no masses palpated. Bowel Sounds normal. MUSCULOSKELETAL: Good range of motion of all major joints. Extremities without clubbing, cyanosis or edema. NEUROLOGIC EXAM: Alert and oriented x 3. No focal sensory or strength deficits. Speech normal. Follows commands. PSYCHIATRIC: Mood normal. SKIN: No rash or lesions. - Constitutional Vitals: Temp Pulse Resp BP Pulse Ox 98 F 69 18 128/88 100 11/24/16 04:49 11/24/16 04:49 11/24/16 04:49 11/24/16 04:49 11/24/16 04:49 Plan Activity: advance as tolerated, fall precautions Diet: low fat Special Instructions: record daily weights, record daily BP diary Follow up with: VJ ADAMS MD [Staff Physician] - 7 Days RICO COOMBS MD [Primary Care Provider] - 3-5 Days ENID CORBIN MD [Staff Physician] - 7 Days
[2016-11-24] MEDS ORDERED: HCTZ PO SCH (10:00)
[2016-11-24 10:27] VITALS: BP 194/87
[2016-11-24] MEDS ORDERED: ATIVAN IV ONE (11:00)
--- NOTE | 2016-11-24 12:48 | Progress Note ---
Assessment and Plan Assessment: Chest pain, atypical - ECG with NAF; troponin negative for AMI x 2 sets; currently resolved. Dyspnea / orthopnea HTN Anxiety Obesity Plan: Echo reviewed with NAF. Pt refused stress test this AM d/t claustrophobia. Cont HCTZ, 25mg daily. Consider addition of CCB if necessary for BP optimization. Currently stable cardiac status. Pt may discharge home from cardiology standpoint. Follow up in our office with Deb Hall NP, within 1-2 weeks of hospital discharge ([phone]). Assessment and plan reviewed with pt and pt's at bedside. The patient has been seen in conjunction with Dr. Hernández who agrees with the assessment and plan of care. Subjective Date of service: 11/24/16 Principal diagnosis: chest pain Interval history: Pt seen in stress lab, anxious. States she is claustrophobic and cannot complete stress test despite receiving ativan. Objective Last Vital Signs Temp 97.9 F 11/24/16 08:00 Pulse 66 11/24/16 10:00 Resp 20 11/24/16 10:00 BP 194/87 11/24/16 08:00 Pulse Ox 98 11/24/16 08:00 - Physical Examination General: Appears Well HEENT: Positive: PERRL, Normocephaly, Mucus Membranes Moist Neck: Positive: neck supple, trachea midline Cardiac: Positive: Reg Rate and Rhythm, S1/S2 Lungs: Positive: Normal Exam, clear to auscultation, Normal Breath Sounds Neuro: Positive: Grossly Intact, Cranial Nerve 2-12 Intact Abdomen: Positive: Unremarkable, Soft, Active Bowel Sounds. Negative: Tender Skin: Positive: Clear. Negative: Rash, Wound Musculoskeletal: No Fluid Collection, No Pain, Normal Range of Motion Extremities: Present: normal, upper extr. pulses, lower extr. pulses. Absent: edema - Labs and Meds Cardiac Enzymes 11/23/16 11/24/16 Range/Units 21:17 03:23 CK-MB (CK-2) 2.1 2.1 (0.0-4.0) ng/mL Lipids 11/24/16 Range/Units 03:23 Triglycerides 65 (2-149) mg/dL Cholesterol 165 (50-199) mg/dL HDL Cholesterol 51 (40-59) mg/dL Cholesterol/HDL Ratio 3.23 % CBC 11/24/16 Range/Units 03:23 WBC 7.0 (4.5-11.0) K/mm3 RBC 5.36 H (3.65-5.03) M/mm3 Hgb 12.9 (10.1-14.3) gm/dl Hct 40.0 (30.3-42.9) % Plt Count 306 (140-440) K/mm3 Lymph # 2.4 (1.2-5.4) K/mm3 [place] # 0.4 (0.0-0.8) K/mm3 Eos # 0.2 (0.0-0.4) K/mm3 Baso # 0.0 (0.0-0.1) K/mm3 Comprehensive Metabolic Panel 11/24/16 Range/Units 03:23 Sodium 140 (137-145) mmol/L Potassium 3.6 (3.6-5.0) mmol/L Chloride 98.5 (98-107) mmol/L Carbon Dioxide 26 (22-30) mmol/L BUN 15 (7-17) mg/dL Creatinine 0.8 (0.7-1.2) mg/dL Glucose 96 (65-100) mg/dL Calcium 8.8 (8.4-10.2) mg/dL - Imaging and Cardiology EKG: report reviewed, image reviewed Echo: report reviewed - Telemetry EKG Rhythm: Sinus Rhythm - EKG Sinus rhythms and dysrhythmias: sinus rhythm Repolarization changes or abnormalities: nonspecific abnormality, ST segment, and/or T wave
[2016-11-24] MEDS: BUSPAR PO SCH (13:04)
[2016-11-24] MEDS: CLARITIN PO SCH (13:04)
[2016-11-25] MEDS ORDERED: HCTZ PO SCH (10:00)
== END 2016-11-24 14:34 | disposition home or self-care (01) | DRG 206 ==
LOC: ED 03:45 → 4A 11:30
PROVIDERS: ADMIT Internal Medicine; ATTEND Internal Medicine
DX: M94.0 Chondrocostal junction syndrome [Tietze] (principal); Z68.43 Body mass index [BMI] 50.0-59.9, adult; E66.2 Morbid (severe) obesity with alveolar hypoventilation; I10 Essential (primary) hypertension; F41.9 Anxiety disorder, unspecified; K21.9 Gastro-esophageal reflux disease without esophagitis; Z90.49 Acquired absence of other specified parts of digestive tract; Z88.6 Allergy status to analgesic agent; Z88.1 Allergy status to other antibiotic agents; Z88.0 Allergy status to penicillin; Z88.2 Allergy status to sulfonamides; Z82.49 Family history of ischemic heart disease and other diseases of the circulatory system
CPT/HCPCS: 36415; 71020; 71275; 80048; 80061; 82550; 82553; 84484; 85025; 85379; 85610; 93005; 93010; 93306; 96374; J2060; Q9967

== ENCOUNTER 2016-11-26 00:54 | Emergency (ER) | payer OTHER ==
[2016-11-26 02:03] LABS: Basophils % (Auto) 0.5 % (0.0-1.8); Eosinophils % (Auto) 3.4 % (0.0-4.3); Hematocrit 39.1 % (30.3-42.9); Hemoglobin 12.5 gm/dl (10.1-14.3); Mean Corpuscular HGB Conc 32 % (30-34); Mean Corpuscular Volume 75 fl (79-97); Platelet Count 317 K/mm3 (140-440); Red Cell Distribution Width 16.5 % (13.2-15.2); White Blood Count 6.8 K/mm3 (4.5-11.0)
[2016-11-26 02:25] LABS: BUN/Creatinine Ratio 16.25; Blood Urea Nitrogen 13 mg/dL (7-17); Calcium 9.2 mg/dL (8.4-10.2); Carbon Dioxide 28 mmol/L (22-30); Glucose 101 mg/dL (65-100)
[2016-11-26 02:26] LABS: Anion Gap 15 mmol/L; Chloride 99.7 mmol/L (98-107); Sodium 139 mmol/L (137-145)
[2016-11-26 02:34] LABS: Mean Corpuscular Hemoglobin 24 pg (28-32)
[2016-11-26 03:36] LABS: Bilirubin,Urine NEG (Negative); Blood,Urine SM (Negative); Ketones,Urine NEG (Negative); Leukocyte Esterase,Urine NEG (Negative); Mucus,Urine FEW /HPF; Nitrite,Urine NEG (Negative); Protein,Urine <15 mg/dL mg/dL (Negative); Urobilinogen,Urine < 2.0 mg/dL (<2.0); WBC,Urine < 1.0 /HPF (0.0-6.0)
[2016-11-26 04:23] VITALS: BP 129/61
--- NOTE | 2016-11-30 11:07 | ED Elopement Review ---
ED Pt Elopement review - Results review Lab results: Laboratory Tests 11/26/16 11/26/16 11/26/16 01:48 01:48 02:46 WBC 6.8 RBC 5.20 H Hgb 12.5 Hct 39.1 MCV 75 L MCH 24 L MCHC 32 RDW 16.5 H Plt Count 317 Lymph % (Auto) 34.4 [place] % (Auto) 8.3 H Eos % (Auto) 3.4 Baso % (Auto) 0.5 Lymph # 2.3 [place] # 0.6 Eos # 0.2 Baso # 0.0 Seg Neutrophils % 53.4 Seg Neutrophils # 3.6 Sodium 139 Potassium 4.0 Chloride 99.7 Carbon Dioxide 28 Anion Gap 15 BUN 13 Creatinine 0.8 Estimated GFR > 60 BUN/Creatinine Ratio 16.25 Glucose 101 H Calcium 9.2 Troponin T < 0.010 Urine Color Yellow Urine Turbidity Clear Urine pH 5.0 Ur Specific [place] 1.015 Urine Protein <15 mg/dl Urine Glucose (UA) Neg Urine Ketones Neg Urine Blood Sm Urine Nitrite Neg Ur Reducing Substances Not Reportable Urine Bilirubin Neg Urine Ictotest Not Reportable Urine Urobilinogen < 2.0 Ur Leukocyte Esterase Neg Urine WBC (Auto) < 1.0 Urine RBC (Auto) 1.0 U Epithel Cells (Auto) 1.0 Amorphous Crystals Few Urine Mucus Few Urine HCG, Qual Negative 11/26/16 04:26 WBC RBC Hgb Hct MCV MCH MCHC RDW Plt Count Lymph % (Auto) [place] % (Auto) Eos % (Auto) Baso % (Auto) Lymph # [place] # Eos # Baso # Seg Neutrophils % Seg Neutrophils # Sodium Potassium Chloride Carbon Dioxide Anion Gap BUN Creatinine Estimated GFR BUN/Creatinine Ratio Glucose Calcium Troponin T < 0.010 Urine Color Urine Turbidity Urine pH Ur Specific [place] Urine Protein Urine Glucose (UA) Urine Ketones Urine Blood Urine Nitrite Ur Reducing Substances Urine Bilirubin Urine Ictotest Urine Urobilinogen Ur Leukocyte Esterase Urine WBC (Auto) Urine RBC (Auto) U Epithel Cells (Auto) Amorphous Crystals Urine Mucus Urine HCG, Qual - Call Back decision Pt Call Back Decision: No action required
== END 2016-11-26 05:14 ==
LOC: ED 00:54
DX: R07.89 Other chest pain (principal); I10 Essential (primary) hypertension; J45.909 Unspecified asthma, uncomplicated; K21.9 Gastro-esophageal reflux disease without esophagitis; Z88.1 Allergy status to other antibiotic agents; Z88.2 Allergy status to sulfonamides; Z88.0 Allergy status to penicillin; Z88.5 Allergy status to narcotic agent; Z88.8 Allergy status to other drugs, medicaments and biological substances; Z53.21 Procedure and treatment not carried out due to patient leaving prior to being seen by health care provider
CPT/HCPCS: 36415; 80048; 81001; 81025; 84484; 85025; 93005; 93010

== ENCOUNTER 2016-11-27 22:56 | Emergency (ER) | payer SELFPAY ==
[2016-11-27 23:22] VITALS: BP 158/90
[2016-11-27 23:44] LABS: Basophils % (Auto) 0.5 % (0.0-1.8); Eosinophils % (Auto) 3.6 % (0.0-4.3); Hemoglobin 12.1 gm/dl (10.1-14.3); Mean Corpuscular HGB Conc 32 % (30-34); Mean Corpuscular Volume 76 fl (79-97); Platelet Count 337 K/mm3 (140-440); Red Blood Count 5.03 M/mm3 (3.65-5.03); Red Cell Distribution Width 16.5 % (13.2-15.2); White Blood Count 7.3 K/mm3 (4.5-11.0)
[2016-11-27 23:48] LABS: Mean Corpuscular Hemoglobin 24 pg (28-32)
[2016-11-27 23:57] LABS: Anion Gap 19 mmol/L; BUN/Creatinine Ratio 16.25; Blood Urea Nitrogen 13 mg/dL (7-17); Carbon Dioxide 27 mmol/L (22-30); Chloride 97.8 mmol/L (98-107); Glucose 114 mg/dL (65-100); Potassium 3.6 mmol/L (3.6-5.0); Sodium 140 mmol/L (137-145)
--- NOTE | 2016-11-30 11:18 | ED Elopement Review ---
ED Pt Elopement review - Results review Lab results: Laboratory Tests 11/27/16 11/27/16 23:26 23:26 WBC 7.3 RBC 5.03 Hgb 12.1 Hct 38.0 MCV 76 L MCH 24 L MCHC 32 RDW 16.5 H Plt Count 337 Lymph % (Auto) 29.7 [place] % (Auto) 7.5 H Eos % (Auto) 3.6 Baso % (Auto) 0.5 Lymph # 2.2 [place] # 0.5 Eos # 0.3 Baso # 0.0 Seg Neutrophils % 58.7 Seg Neutrophils # 4.3 Sodium 140 Potassium 3.6 Chloride 97.8 L Carbon Dioxide 27 Anion Gap 19 BUN 13 Creatinine 0.8 Estimated GFR > 60 BUN/Creatinine Ratio 16.25 Glucose 114 H Calcium 9.0 Troponin T < 0.010 - Call Back decision Pt Call Back Decision: No action required
== END 2016-11-28 00:30 | disposition left against medical advice (07) ==
LOC: ED 22:56
DX: R06.02 Shortness of breath (principal); R07.9 Chest pain, unspecified; R42 Dizziness and giddiness; R11.11 Vomiting without nausea; Z53.21 Procedure and treatment not carried out due to patient leaving prior to being seen by health care provider
CPT/HCPCS: 36415; 80048; 84484; 85025; 93005; 93010

== ENCOUNTER 2017-10-28 11:27 | Emergency (ER) | payer OTHER ==
[2017-10-28 13:14] LABS: Bilirubin,Urine NEG (Negative); Blood,Urine NEG (Negative); Color,Urine Yellow (Yellow); Protein,Urine <15 mg/dL mg/dL (Negative); Urobilinogen,Urine < 2.0 mg/dL (<2.0); WBC,Urine < 1.0 /HPF (0.0-6.0)
[2017-10-28 13:22] LABS: Hematocrit 38.3 % (30.3-42.9); Hemoglobin 12.2 gm/dl (10.1-14.3); Mean Corpuscular HGB Conc 32 % (30-34); Mean Corpuscular Volume 76 fl (79-97); Platelet Count 306 K/mm3 (140-440); Red Blood Count 5.03 M/mm3 (3.65-5.03)
[2017-10-28 13:23] LABS: Mean Corpuscular Hemoglobin 24 pg (28-32)
[2017-10-28 13:42] LABS: Alanine Aminotransferase 18 units/L (7-56); Albumin 3.6 g/dL (3.9-5); BUN/Creatinine Ratio 17; Blood Urea Nitrogen 12 mg/dL (7-17); Calcium 8.9 mg/dL (8.4-10.2); Hemolysis Index 17
[2017-10-28] MEDS ORDERED: ATIVAN PO ONE (16:39)
[2017-10-28] MEDS ORDERED: ANTIVERT PO ONE (16:39)
--- NOTE | 2017-10-28 16:45 | Emergency Department Report ---
HPI - General Chief Complaint: Dizziness Time Seen by Provider: 10/28/17 16:28 - HPI HPI: Room 7 The patient is a 52-year-old female presenting with a chief complaint of dizziness. The patient states for 4 weeks she has had intermittent dizziness. The patient states her primary physician increase her BuSpar bleed and it may be secondary to her anxiety. Patient states the symptoms have persisted. The patient states 2 days ago she went to the emergency department ([facility] ) for another episode of dizziness. Labs were within normal limits. The patient states this morning her dizziness. Worse as the room appeared to be spinning. The patient states she had episodes of nausea and vomiting in addition to diarrhea. Patient says she did not have a headache at the onset of her symptoms but has a headache now. The patient states the dizziness has improved somewhat but she still feels slightly dizzy. Patient denied any preceding chest pain, shortness of breath or headache. Location: Head Duration: [See above] Quality: Vertigo Severity: Moderate Modifying factors: [see above] Context: [see above] Mode of transportation: [not driving] ED Past Medical Hx - Past Medical History Hx Hypertension: Yes (no meds) Hx GERD: Yes Hx Psychiatric Treatment: Yes (panic attacks) Hx Asthma: Yes (seasonal) Additional medical history: lymph nodes - Surgical History Hx Cholecystectomy: Yes () Hx Breast Surgery: Yes Additional Surgical History: csection x 2, breast reduction / lymph node removal w skin graft - Family History Family history: no significant - Social History Smoking Status: Never Smoker Substance Use Type: None (denies illicit drug use) - Medications Home Medications: Home Medications Medication Instructions Recorded Confirmed Last Taken Type Fexofenadine HCl 180 mg PO DAILY 11/23/16 11/23/16 11/22/16 History Hydrochlorothiazide [HCTZ] 25 mg PO DAILY PRN 11/23/16 11/23/16 11/22/16 History busPIRone [Buspar] 15 mg PO DAILY 11/23/16 11/23/16 11/22/16 History Meclizine [Antivert] 25 mg PO TID PRN #20 tablet 10/28/17 Unknown Rx Ondansetron [Zofran ODT TAB] 8 mg PO Q8HR #20 tab.rapdis 10/28/17 Unknown Rx ED Review of Systems ROS: Stated complaint: SOB/DIZZY Other details as noted in HPI Respiratory: denies: shortness of breath Cardiovascular: denies: chest pain Gastrointestinal: nausea, vomiting, diarrhea Neurological: headache, vertigo Psychiatric: anxiety Physical Exam - Physical Exam Vital Signs: Vital Signs 10/28/17 12:26 Temperature 98 F Pulse Rate 67 Respiratory 16 Rate Blood Pressure 133/61 O2 Sat by Pulse 98 Oximetry Physical Exam: GENERAL: The patient is well-developed well-nourished female lying on stretcher not appearing to be in acute distress. [] HEENT: Normocephalic. Atraumatic. Extraocular motions are intact. Patient has moist mucous membranes. No nystagmus NECK: Supple. No meningitic signs are noted. There is no adenopathy noted. CHEST/LUNGS: Clear to auscultation. There is no respiratory distress noted. HEART/CARDIOVASCULAR: Regular. There is no tachycardia. There is no gallop rub or murmur. ABDOMEN: Abdomen is soft, nontender. Patient has normal bowel sounds. There is no abdominal distention. SKIN: There is no rash. There is no edema. There is no diaphoresis. NEURO: The patient is awake, alert, and oriented. The patient is cooperative. The patient has no focal neurologic deficits. The patient has normal speech. Cranial nerves II through XII grossly intact, motor. No dysmetria noted with finger to nose bilaterally MUSCULOSKELETAL: There is no evidence of acute injury. ED Course Vital Signs 10/28/17 12:26 Temperature 98 F Pulse Rate 67 Respiratory 16 Rate Blood Pressure 133/61 O2 Sat by Pulse 98 Oximetry - Reevaluation(s) Reevaluation #1: 10/28/17 18:39 Patient states she feels improved after medication. Studies discuss with patient. Strong warnings to return. Patient instructed she should follow up with neurologist ED Medical Decision Making - Lab Data Result diagrams: 10/28/17 12:38 10/28/17 12:38 Laboratory Tests 10/28/17 10/28/17 10/28/17 12:38 12:38 12:55 WBC 7.0 RBC 5.03 Hgb 12.2 Hct 38.3 MCV 76 L MCH 24 L MCHC 32 RDW 16.0 H Plt Count 306 Sodium 140 Potassium 3.9 Chloride 97.7 L Carbon Dioxide 29 Anion Gap 17 BUN 12 Creatinine 0.7 Estimated GFR > 60 BUN/Creatinine Ratio 17 Glucose 94 Calcium 8.9 Total Bilirubin 0.20 AST 21 ALT 18 Alkaline Phosphatase 83 Total Protein 7.8 Albumin 3.6 L Albumin/Globulin Ratio 0.9 Urine Color Yellow Urine Turbidity Clear Urine pH 6.0 Ur Specific Sidon 1.015 Urine Protein <15 mg/dl Urine Glucose (UA) Neg Urine Ketones Neg Urine Blood Neg Urine Nitrite Neg Urine Bilirubin Neg Urine Urobilinogen < 2.0 Ur Leukocyte Esterase Neg Urine WBC (Auto) < 1.0 Urine RBC (Auto) 1.0 U Epithel Cells (Auto) < 1.0 - EKG Data -: EKG Interpreted by Ok EKG shows normal: sinus rhythm Rate: normal - EKG Data When compared to previous EKG there are: changes noted Interpretation: nonspecific ST-T wave adam (Biphasic T waves in leads V5, V6 when compared to previous EKG dated 11/26/2016) - Radiology Data Radiology results: report reviewed (CT head), image reviewed (CT head) [place] [address] Cat Scan Report Signed Patient: ANNEL CORTÉS MR#: [id number] : 1965 Acct:[id number] Age/Sex: 52 / F ADM Date: 10/28/17 Loc: ED Attending Dr: Ordering Physician: KIMO HOUSTON MD Date of Service: 10/28/17 Procedure(s): CT head/brain wo con Accession Number(s): [id number] cc: KIMO HOUSTON MD FINAL REPORT PROCEDURE: CT HEAD/BRAIN WO CON TECHNIQUE: Computerized tomography of the head was performed without contrast material. HISTORY: dizziness COMPARISON: No prior studies are available for comparison. FINDINGS: Brain: Brain density appears normal. No evidence of intracranial hemorrhage. No parenchymal hemorrhage, mass lesions or mass effect are seen. No abnormal extraxial fluid collects or masses are seen. Ventricles: Ventricles are normal size and are midline. Bone Windows: No evidence of skull fracture. Paranasal sinuses: Clear Mastoid air cells: Clear IMPRESSION: Negative examination Transcribed By: DFN Dictated By: CLIFTON MIN MD Electronically Authenticated By: CLIFTON MIN MD Signed Date/Time: 10/28/171814 DD/ 14 TD/TT: 10/28/171814 - Differential Diagnosis vertigo, intracranial mass, cerebellar mass Critical care attestation.: If time is entered above; I have spent that time in minutes in the direct care of this critically ill patient, excluding procedure time. ED Disposition Clinical Impression: Vertigo Disposition: -01 TO HOME OR SELFCARE Is pt being admited?: No Does the pt Need Aspirin: No Condition: Stable Instructions: Vertigo (ED) Additional Instructions: Return to the emergency department immediately should you develop worsening symptoms, fever, inability to tolerate food or liquid or any other concerns. Prescriptions: Meclizine [Antivert] 25 mg PO TID PRN #20 tablet PRN Reason: Vertigo Ondansetron [Zofran ODT TAB] 8 mg PO Q8HR #20 tab.rapdis Referrals: PRIMARY CARE, [Primary Care Provider] - 3-5 Days MIS ARROYO MD [Staff Physician] - [facility] Time of Disposition: 18:39
[2017-10-28 16:54] LABS: Basophils % (Manual) 0 % (0.0-1.8); Total Cells Counted 100
[2017-10-28 16:55] LABS: Anisocytosis 1+; Platelet Estimate Consistent w Auto
[2017-10-28 17:22] LABS: Creatine Kinase MB 4.1 ng/mL (0.0-4.0)
--- NOTE | 2017-10-28 18:20 | Cat Scan Report ---
FINAL REPORT PROCEDURE: CT HEAD/BRAIN WO CON TECHNIQUE: Computerized tomography of the head was performed without contrast material. HISTORY: dizziness COMPARISON: No prior studies are available for comparison. FINDINGS: Brain: Brain density appears normal. No evidence of intracranial hemorrhage. No parenchymal hemorrhage, mass lesions or mass effect are seen. No abnormal extraxial fluid collects or masses are seen. Ventricles: Ventricles are normal size and are midline. Bone Windows: No evidence of skull fracture. Paranasal sinuses: Clear Mastoid air cells: Clear IMPRESSION: Negative examination
[2017-10-28 19:14] VITALS: BP 116/60
== END 2017-10-28 19:13 | disposition home or self-care (01) ==
LOC: ED 11:27
DX: R42 Dizziness and giddiness (principal); I10 Essential (primary) hypertension; K21.9 Gastro-esophageal reflux disease without esophagitis; J45.909 Unspecified asthma, uncomplicated
CPT/HCPCS: 36415; 70450; 80053; 81001; 82550; 82553; 84484; 85007; 85025

== ENCOUNTER 2018-01-07 00:55 | Inpatient (IN) | payer OTHER ==
--- NOTE | 2018-01-07 01:32 | XRay Report ---
FINAL REPORT PROCEDURE: XR CHEST ROUTINE 2V TECHNIQUE: PA and lateral chest radiographs were obtained. CPT 84939 HISTORY: Shortness of breath COMPARISON: 07/09/2016 FINDINGS: Heart: Normal. Mediastinum/Vessels: Normal. Lungs/Pleural space: Normal. Bony thorax: No acute osseous abnormality. Other: IMPRESSION: Normal examination.
[2018-01-07] MEDS ORDERED: PROVENTIL IH ONE ×3 (01:41→06:26)
[2018-01-07 01:48] LABS: Basophils % (Auto) 0.4 % (0.0-1.8); Hematocrit 38.6 % (30.3-42.9); Hemoglobin 12.4 gm/dl (10.1-14.3); Lymphocytes % (Auto) 11.5 % (13.4-35.0); Mean Corpuscular HGB Conc 32 % (30-34); Mean Corpuscular Volume 76 fl (79-97); Monocytes # (Auto) 0.7 K/mm3 (0.0-0.8); Red Blood Count 5.09 M/mm3 (3.65-5.03); Red Cell Distribution Width 16.5 % (13.2-15.2)
[2018-01-07] MEDS ORDERED: ATROVENT IH ONE ×3 (01:48→06:26)
[2018-01-07 01:49] LABS: Mean Corpuscular Hemoglobin 25 pg (28-32)
[2018-01-07 01:55] LABS: BUN/Creatinine Ratio 19; Blood Urea Nitrogen 13 mg/dL (7-17); Calcium 8.8 mg/dL (8.4-10.2); Hemolysis Index 6
[2018-01-07 02:46] LABS: Platelet Count 195 K/mm3 (140-440)
[2018-01-07] MEDS ORDERED: TESSALON PERLES PO ONE (06:26)
[2018-01-07] MEDS ORDERED: MAGNESIUM SULFATE 2GM/50ML 2 GM/50 ML BAG IV ONE (06:26)
--- NOTE | 2018-01-07 06:57 | Emergency Department Report ---
ED Shortness of Breath HPI - General Chief Complaint: Dyspnea/Respdistress Stated Complaint: URI SX Time Seen by Provider: 01/07/18 06:16 Source: patient, old records reviewed Mode of arrival: Ambulatory Limitations: No Limitations - History of Present Illness Initial Comments: 52-year-old female with a past medical history of seasonal allergy, hypertension , and panic attacks presents to the hospital complaining of cough productive of yellow sputum, wheezing, shortness of breath 1 week. Subjective fever at home. Pt was at [place] [facility] 3 days ago for the same complaints. She was diagnosed with acute bronchitis and discharged on Z-Vidal and prednisone 40 mg 5 days. Despite taking this medication patient had acutely worsening shortness of breath prior to arrival to feels better after receiving albuterol 5 and Atrovent 0.5 mg prior to my evaluation. Patient does have a home nebulizer machine. PMD: Dr. Palacios - Related Data Home Medications Medication Instructions Recorded Confirmed Last Taken Fexofenadine HCl 180 mg PO DAILY 11/23/16 11/23/16 11/22/16 Hydrochlorothiazide [HCTZ] 25 mg PO DAILY PRN 11/23/16 11/23/16 11/22/16 busPIRone [Buspar] 15 mg PO DAILY 11/23/16 11/23/16 11/22/16 Previous Rx's Medication Instructions Recorded Last Taken Type Meclizine [Antivert] 25 mg PO TID PRN #20 tablet 10/28/17 Unknown Rx Ondansetron [Zofran ODT TAB] 8 mg PO Q8HR #20 tab.rapdis 10/28/17 Unknown Rx Allergies Allergy/AdvReac Type Severity Reaction Status Date / Time amoxicillin [Amoxicillin] Allergy Shortness Verified 04/10/15 02:49 of Breath ampicillin Allergy Shortness Verified 04/10/15 02:49 of Breath codeine Allergy Shortness Verified 04/10/15 02:49 of Breath guaifenesin [From Robitussin] Allergy Swelling Verified 04/10/15 02:49 loperamide HCl Allergy Rash Verified 04/10/15 02:49 [From Imodium A-D] morphine Allergy Shortness Verified 04/10/15 02:49 of Breath Penicillins Allergy Shortness Verified 04/10/15 02:49 of Breath Sulfa (Sulfonamide Allergy Hives Verified 04/10/15 02:49 Antibiotics) Tetracyclines Allergy Shortness Verified 04/10/15 02:49 of Breath nyquill Allergy Rash Uncoded 04/10/15 02:49 ED Review of Systems ROS: Stated complaint: URI SX Other details as noted in HPI Comment: All other systems reviewed and negative ED Past Medical Hx - Past Medical History Previous Medical History?: Yes Hx Hypertension: Yes Hx Heart Attack/AMI: No Hx GERD: Yes Hx Liver Disease: No Hx Renal Disease: No Hx Seizures: No Hx Psychiatric Treatment: Yes (panic attacks) Hx Asthma: Yes (seasonal) Hx COPD: No Hx HIV: No Additional medical history: lymph nodes - Surgical History Past Surgical History?: Yes Hx Cholecystectomy: Yes () Hx Breast Surgery: Yes Additional Surgical History: csection x 2, breast reduction / lymph node removal w skin graft - Social History Smoking Status: Never Smoker Substance Use Type: None - Medications Home Medications: Home Medications Medication Instructions Recorded Confirmed Last Taken Type Fexofenadine HCl 180 mg PO DAILY 11/23/16 11/23/16 11/22/16 History Hydrochlorothiazide [HCTZ] 25 mg PO DAILY PRN 11/23/16 11/23/16 11/22/16 History busPIRone [Buspar] 15 mg PO DAILY 11/23/16 11/23/16 11/22/16 History Meclizine [Antivert] 25 mg PO TID PRN #20 tablet 10/28/17 Unknown Rx Ondansetron [Zofran ODT TAB] 8 mg PO Q8HR #20 tab.rapdis 10/28/17 Unknown Rx ED Physical Exam - General Limitations: No Limitations - Other Other exam information: General: No limitations, patient is alert in no acute distress Head exam: Atraumatic, normocephalic Eyes exam: Normal appearance ENT: Moist mucous membrane Neck exam: Normal inspection, full range of motion, no meningismus nontender Respiratory exam: Speaking comfortably, no accessory muscle use, bilateral expiratory wheezing and frequent cough Cardiovascular: Normal rate and rhythm, normal heart sounds Abdomen: Soft, nondistended, and nontender, with normal bowel sounds, no rebound, or guarding Extremity: Full range of motion normal inspection no deformity, no calf tenderness or edema Back: Normal Inspection, full range of motion, no tenderness Neurologic: Alert, oriented x3, cranial nerves intact, no motor or sensory deficit Psychiatric: normal affect, normal mood Skin: Warm, dry, intact ED Course Vital Signs 01/07/18 01/07/18 01/07/18 01:04 01:45 02:05 Temperature 97.8 F Pulse Rate 73 Pulse Rate [ 78 86 Posterior Bilateral] Respiratory 20 Rate Respiratory 20 18 Rate [Posterior Bilateral] Blood Pressure 213/85 Blood Pressure [Left] O2 Sat by Pulse 97 Oximetry 01/07/18 01/07/18 01/07/18 03:25 03:30 03:32 Temperature 98.5 F Pulse Rate 66 70 67 Pulse Rate [ Posterior Bilateral] Respiratory 19 17 20 Rate Respiratory Rate [Posterior Bilateral] Blood Pressure 138/64 Blood Pressure 119/35 [Left] O2 Sat by Pulse 97 80 L 96 Oximetry 01/07/18 01/07/18 01/07/18 04:00 04:30 05:00 Temperature Pulse Rate 72 62 64 Pulse Rate [ Posterior Bilateral] Respiratory 20 25 H 25 H Rate Respiratory Rate [Posterior Bilateral] Blood Pressure 137/73 143/72 142/79 Blood Pressure [Left] O2 Sat by Pulse 96 91 92 Oximetry 01/07/18 01/07/18 06:38 07:40 Temperature Pulse Rate 94 H Pulse Rate [ 68 Posterior Bilateral] Respiratory 18 Rate Respiratory 18 Rate [Posterior Bilateral] Blood Pressure Blood Pressure 144/62 [Left] O2 Sat by Pulse 94 Oximetry - Reevaluation(s) Reevaluation #1: 01/07/18 08:32 pt given Mag, solumedrol and additional nebs, pt reports feeling a little better but wheezing persists ED Medical Decision Making - Lab Data Result diagrams: 01/07/18 01:06 01/07/18 01:06 Lab Results 01/07/18 01/07/18 Range/Units 01:06 01:06 WBC 8.5 (4.5-11.0) K/mm3 RBC 5.09 H (3.65-5.03) M/mm3 Hgb 12.4 (10.1-14.3) gm/dl Hct 38.6 (30.3-42.9) % MCV 76 L (79-97) fl MCH 25 L (28-32) pg MCHC 32 (30-34) % RDW 16.5 H (13.2-15.2) % Plt Count 195 (140-440) K/mm3 Lymph % (Auto) 11.5 L (13.4-35.0) % Foard % (Auto) 8.0 H (0.0-7.3) % Eos % (Auto) 0.0 (0.0-4.3) % Baso % (Auto) 0.4 (0.0-1.8) % Lymph # 1.0 L (1.2-5.4) K/mm3 Foard # 0.7 (0.0-0.8) K/mm3 Eos # 0.0 (0.0-0.4) K/mm3 Baso # 0.0 (0.0-0.1) K/mm3 Seg Neutrophils % 80.1 H (40.0-70.0) % Seg Neutrophils # 6.8 (1.8-7.7) K/mm3 Sodium 136 L (137-145) mmol/L Potassium 3.6 (3.6-5.0) mmol/L Chloride 95.4 L (98-107) mmol/L Carbon Dioxide 26 (22-30) mmol/L Anion Gap 18 mmol/L BUN 13 (7-17) mg/dL Creatinine 0.7 (0.7-1.2) mg/dL Estimated GFR > 60 ml/min BUN/Creatinine Ratio 19 % Glucose 119 H (65-100) mg/dL Calcium 8.8 (8.4-10.2) mg/dL Troponin T < 0.010 (0.00-0.029) ng/mL - EKG Data -: EKG Interpreted by Sd EKG shows normal: sinus rhythm, axis (qrs 30), QRS complexes (qrsd 84), ST-T waves (no stemi/t inv) Rate: normal (75) - EKG Data When compared to previous EKG there are: no significant change - Radiology Data Radiology results: report reviewed FINAL REPORT PROCEDURE: XR CHEST ROUTINE 2V TECHNIQUE: PA and lateral chest radiographs were obtained. CPT 58680 HISTORY: Shortness of breath COMPARISON: 07/09/2016 FINDINGS: Heart: Normal. Mediastinum/Vessels: Normal. Lungs/Pleural space: Normal. Bony thorax: No acute osseous abnormality. Other: IMPRESSION: Normal examination. - Medical Decision Making Patient has persistent wheezing, coughing, shortness of breath despite outpatient and ED treatment. Will be admitted for further treatment. BP spontaneously improved without treatment - Differential Diagnosis pneumonia, bronchitis, asthma, CHF Critical Care Time: No Critical care attestation.: If time is entered above; I have spent that time in minutes in the direct care of this critically ill patient, excluding procedure time. ED Disposition Clinical Impression: Acute asthmatic bronchitis, Obesity, Hypertension, Failure of outpatient treatment Disposition: OP ADMIT IP TO THIS HOSP Is pt being admited?: Yes Condition: Stable Time of Disposition: 08:37 (Dr Cannon/hosp)
[2018-01-07] MEDS ORDERED: TYLENOL PO PRN (08:46)
[2018-01-07] MEDS ORDERED: SODIUM CHLORIDE FLUSH SYRINGE 10 ML IV PRN (08:46)
[2018-01-07] MEDS ORDERED: AMBIEN PO PRN (08:46)
[2018-01-07] MEDS ORDERED: ZOFRAN IV PRN (08:46)
[2018-01-07] MEDS ORDERED: NORCO 5/325 PO PRN (08:46)
[2018-01-07] MEDS ORDERED: ZITHROMAX 500 MG in NACL 0.9% 250ML 250 ML IV ONE (08:50)
[2018-01-07] MEDS ORDERED: ANTIVERT PO PRN (08:51)
[2018-01-07] MEDS: DUONEB *Not for PRN Use IH SCH ×3 (09:18→22:28)
[2018-01-07] MEDS ORDERED: BUSPAR ONE (09:50)
[2018-01-07] MEDS ORDERED: LOVENOX SUB-Q ONE (09:50)
[2018-01-07] MEDS: ZOFRAN ODT PO SCH ×4 (10:04→21:25)
[2018-01-07] MEDS: BUSPAR PO SCH (10:04)
[2018-01-07] MEDS: LOVENOX SUB-Q SCH (10:04)
[2018-01-07] MEDS: SODIUM CHLORIDE FLUSH SYRINGE 10 ML IV SCH ×2 (10:05→21:26)
[2018-01-07] MEDS: TESSALON PERLES PO SCH ×2 (13:27→21:24)
[2018-01-07] MEDS: HCTZ PO SCH (13:27)
[2018-01-07] MEDS: CLARITIN PO SCH (13:27)
--- NOTE | 2018-01-07 13:42 | History and Physical Report ---
History of Present Illness Date of examination: 01/07/18 Date of admission: 01/07/18 08:46 Chief complaint: Shortness of breath History of present illness: She is a 52-year-old female with a history of hypertension hyperlipidemia anxiety disorder asthma and morbid obesity. Patient presents with a 3 day history of productive cough and sinusitis symptoms and shortness of breath. Patient went to the emergency room at [facility] received a Z-Vidal and Medrol wherever continued to be short of breath and have exacerbations of her asthma. Patient has never been intubated before has never been hospitalized before for asthma. She attempted to stay home until today when symptoms became worse and had to come to the hospital. Present patient was found to be somewhat hypoxic wheezing. Did not respond to treatment in the ED and therefore required medical admission. Past History Past Medical History: anemia, hypertension, hyperlipidemia. denies: acute SD, atrial fib, arrhythmia, arthritis, CAD, cancer, COPD, diabetes, dialysis, DVT, ESRD, GERD, heart failure, hepatitis, HIV/AIDS, hyperthyroidism, hypothyroidism , liver disease, migraines, PVD, pulmonary embolism, renal failure, seizures, stroke, sarcoidosis Past Surgical History: Other (breast reduction surgery) Social history: single, lives with family, full code. denies: smoking, alcohol abuse, prescription drug abuse Family history: no significant family history Medications and Allergies Allergies Allergy/AdvReac Type Severity Reaction Status Date / Time amoxicillin [Amoxicillin] Allergy Shortness Verified 04/10/15 02:49 of Breath ampicillin Allergy Shortness Verified 04/10/15 02:49 of Breath codeine Allergy Shortness Verified 04/10/15 02:49 of Breath guaifenesin [From Robitussin] Allergy Swelling Verified 04/10/15 02:49 loperamide HCl Allergy Rash Verified 04/10/15 02:49 [From Imodium A-D] morphine Allergy Shortness Verified 04/10/15 02:49 of Breath Penicillins Allergy Shortness Verified 04/10/15 02:49 of Breath Sulfa (Sulfonamide Allergy Hives Verified 04/10/15 02:49 Antibiotics) Tetracyclines Allergy Shortness Verified 04/10/15 02:49 of Breath nyquill Allergy Rash Uncoded 04/10/15 02:49 Home Medications Medication Instructions Recorded Confirmed Last Taken Type Fexofenadine HCl 180 mg PO DAILY 11/23/16 01/07/18 11/22/16 History Hydrochlorothiazide [HCTZ] 25 mg PO DAILY 11/23/16 01/07/18 11/22/16 History Meclizine [Antivert] 25 mg PO TID PRN #20 tablet 10/28/17 01/07/18 Unknown Rx Ondansetron [Zofran ODT TAB] 8 mg PO Q8HR #20 tab.rapdis 10/28/17 01/07/18 Unknown Rx Sertraline [Zoloft] 25 mg PO QDAY 01/07/18 01/07/18 Unknown History Active Meds: Active Medications Acetaminophen (Tylenol) 650 mg PO Q4H PRN PRN Reason: Pain MILD(1-3)/Fever >100.5/BISHOP Acetaminophen/Hydrocodone Bitart (Morris 5/325) 2 each PO Q6H PRN PRN Reason: Pain, Moderate (4-6) Albuterol/Ipratropium (Duoneb *Not For Prn Use*) 1 ampul IH Q6HRT [facility] Last Admin: 01/07/18 09:18 Dose: 1 ampul Benzonatate (Tessalon Perles) 100 mg PO Q8HR [facility] Last Admin: 01/07/18 13:27 Dose: 100 mg Budesonide (Pulmicort) 0.5 mg IH Q12HRT [facility] Buspirone HCl (Buspar) 15 mg PO DAILY [facility] Last Admin: 01/07/18 10:04 Dose: Not Given Enoxaparin Sodium (Lovenox) 40 mg SUB-Q QDAY [facility] Last Admin: 01/07/18 10:04 Dose: 40 mg Hydrochlorothiazide (Hctz) 25 mg PO QDAY [facility] Last Admin: 01/07/18 13:27 Dose: 25 mg Loratadine (Claritin) 10 mg PO QDAY [facility] Last Admin: 01/07/18 13:27 Dose: 10 mg Meclizine HCl (Antivert) 25 mg PO TID PRN PRN Reason: Vertigo Methylprednisolone Sodium Succinate (Solu-Medrol) 40 mg IV QDAY [facility] Last Admin: 01/07/18 13:27 Dose: Not Given Ondansetron HCl (Zofran) 4 mg IV Q8H PRN PRN Reason: Nausea And Vomiting Ondansetron HCl (Zofran Odt) 8 mg PO Q8HR [facility] Last Admin: 01/07/18 13:28 Dose: Not Given Pneumococcal Polyvalent Vaccine (Pneumovax 23) 0.5 ml IM .ONCE ONE Stop: 01/08/18 12:01 Sertraline HCl (Zoloft) 25 mg PO QHS [facility] Sodium Chloride (Sodium Chloride Flush Syringe 10 Ml) 10 ml IV BID [facility] Last Admin: 01/07/18 10:05 Dose: 10 ml Sodium Chloride (Sodium Chloride Flush Syringe 10 Ml) 10 ml IV PRN PRN PRN Reason: LINE FLUSH Zolpidem Tartrate (Ambien) 5 mg PO QHS PRN PRN Reason: Insomnia Review of Systems Constitutional: fatigue, weakness, malaise, no weight loss, no weight gain, no fever, no chills, no sweats, no night sweats, no anorexia, no lethargy, no chronic headaches, no poor appetite, no daytime sleepiness, no chronic pain Ears, nose, mouth and throat: ear pain, nose pain, nasal congestion, sinus pressure, no ear discharge, no decreased hearing, no bleeding gums, no mouth pain, no dysphagia, no swelling in throat, no pain front of neck, no neck fullness/pressure, no neck lump Breasts: deferred Cardiovascular: no palpitations, no rapid/irregular heart beat, no edema, no syncope, no lightheadedness, no dyspnea on exertion, no paroxysmal nocturnal dyspnea, no claudication, no phlebitis, no leg edema Respiratory: cough, cough with sputum, shortness of breath, no excessive sputum , no hemoptysis, no dyspnea on exertion, no congestion, no wheezing, no pain on inspiration, no sleep apnea, no respiratory infections, no home oxygen Gastrointestinal: no abdominal pain, no vomiting, no diarrhea, no change in bowel habits, no hematemesis, no early satiety, no indigestion, no early satiety Genitourinary Female: no dysmenorrhea, no pelvic pain, no menorrhagia, no dysuria, no stress incontinence Musculoskeletal: no neck stiffness, no neck pain, no leg numbness/tingling, no hot joints, no morning stiffness, no muscle weakness, no myalgias, no fractures , no loss of height, no prior amputations Integumentary: no rash, no wounds, no lesions, no darkening of skin, no dryness Neurological: no head injury, no paralysis, no parathesias, no numbness, no tremors, no vertigo, no tic, no convulsions, no aphasia, no change in mentation , no memory loss, no motor disturbance, no sensory deficit Psychiatric: no change in sleep habits, no change in appetite, no change in libido, no difficulties concentrating Endocrine: no heat intolerance, no polyphagia, no excessive thirst, no weight change, no deepening of the voice, no thyroid mass, no palpatations, no high blood sugars Hematologic/Lymphatic: no lymphadenopathy, no lymphedema Allergic/Immunologic: no urticaria, no allergic rhinitis, no angioedema, no gluten intolerance Exam - Constitutional Vitals: Temp Pulse Resp BP Pulse Ox 98.4 F 77 22 144/64 95 01/07/18 11:00 01/07/18 11:00 01/07/18 11:00 01/07/18 11:00 01/07/18 11:00 General appearance: Present: mild distress - EENT Eyes: Present: PERRL ENT: hearing intact, clear oral mucosa, dentition normal - Neck Neck: Present: supple, normal ROM - Respiratory Respiratory effort: normal Respiratory: bilateral: diminished, wheezing - Cardiovascular Rhythm: regular Heart Sounds: Present: S1 & S2 - Extremities Extremities: no ischemia, pulses intact, pulses symmetrical, No edema, normal color Peripheral Pulses: within normal limits - Abdominal General gastrointestinal: Present: soft, non-tender, non-distended, normal bowel sounds Female genitourinary: Present: deferred - Rectal Rectal Exam: deferred - Integumentary Integumentary: Present: clear, warm, dry. Absent: erythema, jaundice, rash, clammy, pale - Musculoskeletal Musculoskeletal: strength equal bilaterally, generalized weakness - Psychiatric Psychiatric: appropriate mood/affect, intact judgment & insight, cooperative - Neurologic Neurologic: CNII-XII intact, moves all extremities Results - Labs CBC & Chem 7: 01/07/18 01:06 01/07/18 01:06 Labs: Laboratory Last Values WBC 8.5 K/mm3 (4.5-11.0) 01/07/18 01:06 RBC 5.09 M/mm3 (3.65-5.03) H 01/07/18 01:06 Hgb 12.4 gm/dl (10.1-14.3) 01/07/18 01:06 Hct 38.6 % (30.3-42.9) 01/07/18 01:06 MCV 76 fl (79-97) L 01/07/18 01:06 MCH 25 pg (28-32) L 01/07/18 01:06 MCHC 32 % (30-34) 01/07/18 01:06 RDW 16.5 % (13.2-15.2) H 01/07/18 01:06 Plt Count 195 K/mm3 (140-440) 01/07/18 01:06 Lymph % (Auto) 11.5 % (13.4-35.0) L 01/07/18 01:06 Franklin % (Auto) 8.0 % (0.0-7.3) H 01/07/18 01:06 Eos % (Auto) 0.0 % (0.0-4.3) 01/07/18 01:06 Baso % (Auto) 0.4 % (0.0-1.8) 01/07/18 01:06 Lymph # 1.0 K/mm3 (1.2-5.4) L 01/07/18 01:06 Franklin # 0.7 K/mm3 (0.0-0.8) 01/07/18 01:06 Eos # 0.0 K/mm3 (0.0-0.4) 01/07/18 01:06 Baso # 0.0 K/mm3 (0.0-0.1) 01/07/18 01:06 Seg Neutrophils % 80.1 % (40.0-70.0) H 01/07/18 01:06 Seg Neutrophils # 6.8 K/mm3 (1.8-7.7) 01/07/18 01:06 Sodium 136 mmol/L (137-145) L 01/07/18 01:06 Potassium 3.6 mmol/L (3.6-5.0) 01/07/18 01:06 Chloride 95.4 mmol/L (98-107) L 01/07/18 01:06 Carbon Dioxide 26 mmol/L (22-30) 01/07/18 01:06 Anion Gap 18 mmol/L 01/07/18 01:06 BUN 13 mg/dL (7-17) 01/07/18 01:06 Creatinine 0.7 mg/dL (0.7-1.2) 01/07/18 01:06 Estimated GFR > 60 ml/min 01/07/18 01:06 BUN/Creatinine Ratio 19 % 01/07/18 01:06 Glucose 119 mg/dL (65-100) H 01/07/18 01:06 Calcium 8.8 mg/dL (8.4-10.2) 01/07/18 01:06 Troponin T < 0.010 ng/mL (0.00-0.029) 01/07/18 01:06 - Imaging and Cardiology Chest x-ray: image reviewed Assessment and Plan Advance Directives: Yes VTE prophylaxis?: Chemical Plan of care discussed with patient/family: Yes - Patient Problems (1) Hypertension Current Visit: Yes Status: Acute Plan to address problem: Blood pressure fairly well controlled we'll restart patient on oral antihypertensives. only hydrochlorothiazide. (2) Acute asthmatic bronchitis Current Visit: Yes Status: Acute Plan to address problem: Patient with acute bronchitis this is most likely etiology of asthma exacerbation. Will start patient on azithromycin daily. Patient has a multiple drug allergies multiple antibiotic allergies. Start patient on low- dose steroid as well as albuterol and Atrovent nebulizers O2 and complete supportive care this in the spirometer. (3) Obesity Current Visit: Yes Status: Acute Qualifiers: Body mass index: BMI 38.0-38.9 Plan to address problem: Discussed weight loss options and how this would benefit her (4) DVT prophylaxis Current Visit: No Status: Acute Plan to address problem: Lanoxin
[2018-01-07] MEDS: ZOLOFT PO SCH (21:24)
[2018-01-07] MEDS: PULMICORT IH SCH (22:28)
[2018-01-08] MEDS ORDERED: PROVENTIL IH PRN (00:14)
[2018-01-08] MEDS: TESSALON PERLES PO SCH ×3 (05:44→21:53)
[2018-01-08] MEDS: ZOFRAN ODT PO SCH (05:45)
[2018-01-08] MEDS: DUONEB *Not for PRN Use IH SCH ×3 (08:20→20:08)
[2018-01-08] MEDS: PULMICORT IH SCH ×2 (08:20→20:08)
[2018-01-08 08:39] LABS: BUN/Creatinine Ratio 25; Blood Urea Nitrogen 15 mg/dL (7-17); Hemolysis Index 0
[2018-01-08] MEDS: CLARITIN PO SCH (09:15)
[2018-01-08] MEDS: BUSPAR PO SCH (09:15)
[2018-01-08] MEDS: LOVENOX SUB-Q SCH (09:15)
[2018-01-08] MEDS: HCTZ PO SCH (09:15)
[2018-01-08] MEDS: SODIUM CHLORIDE FLUSH SYRINGE 10 ML IV SCH ×2 (09:15→21:54)
--- NOTE | 2018-01-08 09:45 | Progress Note ---
Assessment and Plan Assessment and plan: Acute respiratory failure due to asthma exacerbation, asthmatic bronchitis. Continue solu-medrol iv Continue Duoneb Oxygen supplementation Albuterol prn Asthma exacerbation. management as above. Asthmatic brionchitis. Hypertension. Continue HCTZ hyperlipidemia Morbid obesity with BMI 54.9. I discussed with her diet and exercise to lose weight DVT prophylaxis with Lovenox Full code status. Hospitalist Physical - Physical exam Narrative exam: Gen : Not in acute distress, lying in bed,morbidly obese HEENT:Normocephalic, atraumatic Neck: supple, No JVD Lungs:coughing, Bilateral rhonchi, wheezing, Heart :S1 and S2 reg, no murmurs, rubs or gallop Abd:soft, non tender, non distended, normal bowel sounds Ext: No edema, no clubbing, no cyanosis Neuro: Awake,alert,oriented x 3, no focal signs - Constitutional Vitals: Temp Pulse Resp BP Pulse Ox 98.3 F 62 17 136/73 96 01/08/18 08:15 01/08/18 08:20 01/08/18 08:20 01/08/18 08:15 01/08/18 08:21 General appearance: Present: mild distress Results - Labs CBC & Chem 7: 01/07/18 01:06 01/08/18 07:39 Labs: Laboratory Last Values WBC 8.5 K/mm3 (4.5-11.0) 01/07/18 01:06 RBC 5.09 M/mm3 (3.65-5.03) H 01/07/18 01:06 Hgb 12.4 gm/dl (10.1-14.3) 01/07/18 01:06 Hct 38.6 % (30.3-42.9) 01/07/18 01:06 MCV 76 fl (79-97) L 01/07/18 01:06 MCH 25 pg (28-32) L 01/07/18 01:06 MCHC 32 % (30-34) 01/07/18 01:06 RDW 16.5 % (13.2-15.2) H 01/07/18 01:06 Plt Count 195 K/mm3 (140-440) 01/07/18 01:06 Lymph % (Auto) 11.5 % (13.4-35.0) L 01/07/18 01:06 [place] % (Auto) 8.0 % (0.0-7.3) H 01/07/18 01:06 Eos % (Auto) 0.0 % (0.0-4.3) 01/07/18 01:06 Baso % (Auto) 0.4 % (0.0-1.8) 01/07/18 01:06 Lymph # 1.0 K/mm3 (1.2-5.4) L 01/07/18 01:06 [place] # 0.7 K/mm3 (0.0-0.8) 01/07/18 01:06 Eos # 0.0 K/mm3 (0.0-0.4) 01/07/18 01:06 Baso # 0.0 K/mm3 (0.0-0.1) 01/07/18 01:06 Seg Neutrophils % 80.1 % (40.0-70.0) H 01/07/18 01:06 Seg Neutrophils # 6.8 K/mm3 (1.8-7.7) 01/07/18 01:06 Sodium 139 mmol/L (137-145) 01/08/18 07:39 Potassium 3.9 mmol/L (3.6-5.0) 01/08/18 07:39 Chloride 96.0 mmol/L (98-107) L 01/08/18 07:39 Carbon Dioxide 27 mmol/L (22-30) 01/08/18 07:39 Anion Gap 20 mmol/L 01/08/18 07:39 BUN 15 mg/dL (7-17) 01/08/18 07:39 Creatinine 0.6 mg/dL (0.7-1.2) L 01/08/18 07:39 Estimated GFR > 60 ml/min 01/08/18 07:39 BUN/Creatinine Ratio 25 % 01/08/18 07:39 Glucose 113 mg/dL (65-100) H 01/08/18 07:39 Calcium 9.0 mg/dL (8.4-10.2) 01/08/18 07:39 Troponin T < 0.010 ng/mL (0.00-0.029) 01/07/18 01:06
[2018-01-08] MEDS ORDERED: PNEUMOVAX 23 IM ONE (12:00)
[2018-01-08] MEDS ORDERED: BENADRYL PO PRN (18:23)
[2018-01-08] MEDS: ZOLOFT PO SCH (21:54)
[2018-01-09] MEDS: TESSALON PERLES PO SCH ×4 (06:46→22:08)
[2018-01-09] MEDS: DUONEB *Not for PRN Use IH SCH ×3 (08:51→20:48)
[2018-01-09] MEDS: PULMICORT IH SCH ×2 (08:51→20:48)
[2018-01-09] MEDS: LOVENOX SUB-Q SCH (09:51)
[2018-01-09] MEDS: SODIUM CHLORIDE FLUSH SYRINGE 10 ML IV SCH (09:51)
[2018-01-09] MEDS: CLARITIN PO SCH (09:51)
[2018-01-09] MEDS: HCTZ PO SCH (09:51)
--- NOTE | 2018-01-09 15:33 | Progress Note ---
Assessment and Plan Assessment and plan: Acute respiratory failure due to asthma exacerbation, asthmatic bronchitis. Continue solu-medrol iv Increase frequency of Duoneb to Q4h Continue Oxygen supplementation Albuterol prn. Not stable for discharge, still wheezing Asthma exacerbation. management as above. Asthmatic brionchitis. Hypertension. Continue HCTZ hyperlipidemia Morbid obesity with BMI 54.9. I discussed with her diet and exercise to lose weight DVT prophylaxis with Lovenox Full code status. History Interval history: Wheezing the whole night, Cough Less shortness of breath Hospitalist Physical - Physical exam Narrative exam: Gen : Not in acute distress, lying in bed,morbidly obese HEENT:Normocephalic, atraumatic Neck: supple, No JVD Lungs:coughing, Bilateral rhonchi, wheezing, Heart :S1 and S2 reg, no murmurs, rubs or gallop Abd:soft, non tender, non distended, normal bowel sounds Ext: No edema, no clubbing, no cyanosis Neuro: Awake,alert,oriented x 3, no focal signs - Constitutional Vitals: Temp Pulse Resp BP Pulse Ox 98.3 F 64 21 142/69 98 01/09/18 07:22 01/09/18 09:15 01/09/18 09:15 01/09/18 07:22 01/09/18 09:01 Results - Labs CBC & Chem 7: 01/07/18 01:06 01/08/18 07:39 Labs: Laboratory Last Values WBC 8.5 K/mm3 (4.5-11.0) 01/07/18 01:06 RBC 5.09 M/mm3 (3.65-5.03) H 01/07/18 01:06 Hgb 12.4 gm/dl (10.1-14.3) 01/07/18 01:06 Hct 38.6 % (30.3-42.9) 01/07/18 01:06 MCV 76 fl (79-97) L 01/07/18 01:06 MCH 25 pg (28-32) L 01/07/18 01:06 MCHC 32 % (30-34) 01/07/18 01:06 RDW 16.5 % (13.2-15.2) H 01/07/18 01:06 Plt Count 195 K/mm3 (140-440) 01/07/18 01:06 Lymph % (Auto) 11.5 % (13.4-35.0) L 01/07/18 01:06 Dillon % (Auto) 8.0 % (0.0-7.3) H 01/07/18 01:06 Eos % (Auto) 0.0 % (0.0-4.3) 01/07/18 01:06 Baso % (Auto) 0.4 % (0.0-1.8) 01/07/18 01:06 Lymph # 1.0 K/mm3 (1.2-5.4) L 01/07/18 01:06 Dillon # 0.7 K/mm3 (0.0-0.8) 01/07/18 01:06 Eos # 0.0 K/mm3 (0.0-0.4) 01/07/18 01:06 Baso # 0.0 K/mm3 (0.0-0.1) 01/07/18 01:06 Seg Neutrophils % 80.1 % (40.0-70.0) H 01/07/18 01:06 Seg Neutrophils # 6.8 K/mm3 (1.8-7.7) 01/07/18 01:06 Sodium 139 mmol/L (137-145) 01/08/18 07:39 Potassium 3.9 mmol/L (3.6-5.0) 01/08/18 07:39 Chloride 96.0 mmol/L (98-107) L 01/08/18 07:39 Carbon Dioxide 27 mmol/L (22-30) 01/08/18 07:39 Anion Gap 20 mmol/L 01/08/18 07:39 BUN 15 mg/dL (7-17) 01/08/18 07:39 Creatinine 0.6 mg/dL (0.7-1.2) L 01/08/18 07:39 Estimated GFR > 60 ml/min 01/08/18 07:39 BUN/Creatinine Ratio 25 % 01/08/18 07:39 Glucose 113 mg/dL (65-100) H 01/08/18 07:39 Calcium 9.0 mg/dL (8.4-10.2) 01/08/18 07:39 Troponin T < 0.010 ng/mL (0.00-0.029) 01/07/18 01:06
[2018-01-09] MEDS ORDERED: DUONEB *Not for PRN Use IH SCH (16:00)
--- NOTE | 2018-01-09 16:11 | Query-Infection ---
"Dear ___Fred Date:_01/09/18 [employer]/CDS:__shravan Phone#:_[phone] Exercise your independent professional judgment when responding to this query. Questions asked do not imply a particular answer is desired or expected. We greatly appreciate your clarification on this issue. Clinical Documentation States: She is a 52-year-old female with a history of hypertension hyperlipidemia anxiety disorder asthma and morbid obesity. Patient presents with a 3 day history of productive cough and sinusitis symptoms and shortness of breath. Taken from H&P note () on 01/07/18. Assessment and Plan: Taken from progress note () on 01/08/18. Acute respiratory failure due to asthma exacerbation, asthmatic bronchitis Asthma exacerbation Asthmatic brionchitis Clinical findings show: (please check applicable parameters) Infection, known /suspected, with some of the following indicators; Specify the infection: Acute Bronchitis 01/07/18 Pulse rate 98 Respiratory rate 31 3 General parameters [ ] Fever (core temp >38.30C or 100.40F) [ ] Hypothermia (core temp <36C) [X] Heart rate >90 bpm [X] Tachypnea: >20 bpm or pCO2 < 32 mmHg [ ] Altered mental status [ ] Significant edema / +ve fluid balance (>20 ml/kg 24 h) [ ] Hyperglycemia (Bl. glucose >110 mg/dl) w/o diabetes Inflammatory parameters [ ] Leukocytosis (white blood cell count >12,000/l) [ ] Leukopenia (white blood cell count <4,000/l) [ ] Bandemia (immature WBC > 10%) [ ] Leucocyte Left Shift [ ] Plasma procalcitonin>2 SD above the normal value Hemodynamic and tissue perfusion parameters [ ] Arterial hypotension(SBP <90 mmHg, MAP <70 mmHg,or a SBP drop >40 mmHg in adults) [ ] Hyperlactatemia (>3 mmol/l) [ ] Anion Gap (> 11mEG/l) [ ] Decreased capillary refill or mottling Organ dysfunction parameters [ ] Arterial hypoxemia (PaO2/FIO2 <300) [ ] Creatinine increase =0.5 mg/dl [ ] Acute oliguria (urine output <0.5 ml | kg |h or 45 mM/l for at least 2 hrs) [ ] Coagulation abnormalities (INR >1.5 or activated partial thromboplastin time >60 s) [ ] Ileus (absent sarah wel sounds) [ ] Thrombocytopenia (platelet count <100,000/l) [ ] Hyperbilirubinemia (plasma total bilirubin >4 mg/dl) According to the clinical indications above, can Bacteremia be further specified? If so, please indicate below and in your Progress Notes and/ or Discharge Summary. Indicate if the condition was present on admission. PHYSICIAN RESPONSE: [ ] Sepsis [ ] Severe Sepsis [ ] Septic Shock [ ] Septicemia [ ] Sepsis now resolved [ x] SIRS due to non-infectious cause with organ dysfunction [ ] SIRS due to non-infectious cause without organ dysfunction [ ] Other: [ ] Comment/Explanation: Present on Admission: [x ] Yes (Y) [ ] Clinically undeterminable (W) [ ] No (N) [ ] Ruled Out Please also document response in your Progress Notes and/or Discharge Summary and indicate if the condition was present on admission Notes: SIRS/ SIRS WITH ORGAN DYSFUNCTION Systemic inflammatory response syndrome (SIRS) generally refers to the systemic response to trauma/warren or other insult such as Acute Myocardial Infarction, Acute Pancreatitis, and Major Surgery with symptoms including fever, tachycardia , tachypnea, and leukocytosis (1). BACTEREMIA Presence of viable bacteria in the circulating blood (2). This term is reserved for patients that do not manifest above SIRS response. SEPTICEMIA Generally refers to a systemic disease associated with the presence of pathological microorganisms or toxins in the blood, which can include bacteria, viruses, fungi or other organisms (1). SEPSIS Generally refers to SIRS due infection (1). SEVERE SEPSIS Generally refers to sepsis associated with acute organ dysfunction (1). SEPTIC SHOCK Generally refers to circulatory failure associated with severe sepsis (2), and defined as hypotension or hypoperfusion despite adequate fluid resuscitation (1 hour) (3). REFERENCES: 1. [place] [employer]/Society of Critical Care Medicine Consensus Conference. Definitions for sepsis and organ failure and guidelines for the use of innovative therapies in sepsis. Critical Care Med 1992;20:864 - 74. 2. Franco villalobos MM, Jonnie MP, Jerome MELANIE, Raúl E, Tim D, Jalen D, Becker J, [place] SM , Bryan JL, Margoth G; International Sepsis Definitions Conference. 2001 SCCM/ESICM/ACCP/ATS/SIS International Sepsis Definitions Conference. Intensive Care Med. 2002;29(4):530-8. Epub 2002Oct 17. Review. PubMed PMID:[id number] 3. ICD-9-CM Official Guidelines for Coding and Reporting 4. Medscape Drugs, Diseases and Procedures references 5. [employer] Textbook of Internal Medicine. 18th Edition MTDD"
[2018-01-09] MEDS: ZOLOFT PO SCH (22:08)
[2018-01-10] MEDS: SODIUM CHLORIDE FLUSH SYRINGE 10 ML IV SCH (01:59)
[2018-01-10] MEDS: TESSALON PERLES PO SCH (05:53)
--- NOTE | 2018-01-10 08:30 | Discharge Summary ---
Providers - Providers Date of Admission: 01/07/18 08:46 Date of discharge: 01/10/18 Attending physician: DMITRIY GUSTAFSON Primary care physician: RILEY FRANKLIN Hospitalization Condition: Fair Disposition: DC-01 TO HOME OR SELFCARE Core Measure Documentation - Palliative Care Palliative Care/ Comfort Measures: Not Applicable - Core Measures Any of the following diagnoses?: none Exam - Constitutional Vitals: Temp Pulse Resp BP Pulse Ox 98.0 F 71 20 143/69 96 01/09/18 20:39 01/09/18 21:03 01/09/18 21:03 01/09/18 20:39 01/09/18 20:51 Plan Activity: advance as tolerated Diet: low fat, low cholesterol, low salt Additional Instructions: 1. Follow up with PCP in 1 week Prescriptions: Benzonatate [Tessalon Perles] 200 mg PO Q8HR PRN #20 capsule PRN Reason: Cough Prednisone [predniSONE 5 mg (6-Day Pack, 21 Tabs)] 5 mg PO .TAPER #1 tab.ds.pk
[2018-01-10] MEDS: DUONEB *Not for PRN Use IH SCH ×2 (09:00→12:15)
[2018-01-10] MEDS: PULMICORT IH SCH (09:06)
[2018-01-10] MEDS: LOVENOX SUB-Q SCH (11:21)
[2018-01-10] MEDS: CLARITIN PO SCH (11:22)
[2018-01-10] MEDS: HCTZ PO SCH (11:22)
[2018-01-10 13:20] VITALS: BP 136/59
== END 2018-01-10 12:45 | disposition home or self-care (01) | DRG 189 ==
LOC: ED 00:55 → 3A 08:46
PROVIDERS: ADMIT Internal Medicine; ATTEND Internal Medicine
PROC: 3E0234Z Introduction of Serum, Toxoid and Vaccine into Muscle, Percutaneous Approach (ICD-10-PCS; principal; 2018-01-08)
DX: J96.00 Acute respiratory failure, unspecified whether with hypoxia or hypercapnia (principal); J45.901 Unspecified asthma with (acute) exacerbation; Z68.43 Body mass index [BMI] 50.0-59.9, adult; R65.10 Systemic inflammatory response syndrome (SIRS) of non-infectious origin without acute organ dysfunction; J20.9 Acute bronchitis, unspecified; E66.01 Morbid (severe) obesity due to excess calories; Z71.3 Dietary counseling and surveillance; Z23 Encounter for immunization; Z88.6 Allergy status to analgesic agent; Z88.0 Allergy status to penicillin; Z88.8 Allergy status to other drugs, medicaments and biological substances; I10 Essential (primary) hypertension; K21.9 Gastro-esophageal reflux disease without esophagitis; Z90.49 Acquired absence of other specified parts of digestive tract; E78.5 Hyperlipidemia, unspecified
CPT/HCPCS: 36415; 71046; 80048; 84484; 85025; 90732; 93005; 93010; 94640; 94760; 96365; 96367; 96375; J0456; J1650; J2920; J2930; J3475; J7050; Q0162

== ENCOUNTER 2018-08-26 23:16 | Emergency (ER) | payer OTHER ==
[2018-08-27 01:07] LABS: Basophils % (Auto) 0.5 % (0.0-1.8); Eosinophils # (Auto) 0.1 K/mm3 (0.0-0.4); Hematocrit 38.7 % (30.3-42.9); Hemoglobin 12.3 gm/dl (10.1-14.3); Lymphocytes # (Auto) 1.8 K/mm3 (1.2-5.4); Mean Corpuscular HGB Conc 32 % (30-34); Mean Corpuscular Volume 76 fl (79-97); Monocytes # (Auto) 0.5 K/mm3 (0.0-0.8); Monocytes % (Auto) 6.8 % (0.0-7.3); Platelet Count 366 K/mm3 (140-440); Red Blood Count 5.13 M/mm3 (3.65-5.03); Red Cell Distribution Width 16.8 % (13.2-15.2)
--- NOTE | 2018-08-27 01:22 | XRay Report ---
FINAL REPORT PROCEDURE: XR CHEST ROUTINE 2V TECHNIQUE: PA and lateral chest radiographs were obtained. CPT 51030 HISTORY: Shortness of breath COMPARISON: 03/29/2018 FINDINGS: Heart: Normal. Mediastinum/Vessels: Normal. Lungs/Pleural space: The lungs are expanded. There are no infiltrates, effusions or pneumothoraces. Bony thorax: No acute osseous abnormality. Other: IMPRESSION: There is no acute cardiopulmonary abnormality..
[2018-08-27 01:29] LABS: BUN/Creatinine Ratio 14; Blood Urea Nitrogen 11 mg/dL (7-17); Calcium 9.2 mg/dL (8.4-10.2); Hemolysis Index 21
[2018-08-27 02:58] VITALS: BP 149/73
--- NOTE | 2018-08-27 07:08 | Emergency Department Report ---
ED Shortness of Breath HPI - General Chief Complaint: Dyspnea/Respdistress Stated Complaint: COPD/SOB Time Seen by Provider: 08/27/18 07:00 Source: patient Mode of arrival: Wheelchair Limitations: No Limitations - History of Present Illness Initial Comments: Patient is a 52-year-old -Russian female with a history of COPD who presents for cough shortness of breath 2 days with bronchospasm patient denies chest pain or shortness of breath no nausea vomiting no back pain at this time no wheezing presents for chest x-ray studies sugar may have been a pesticide was outside MD Complaint: shortness of breath, cough Onset/Timin -: days(s) Radiation: neck Severity: moderate Pain Scale: 4 Quality: aching Consistency: intermittent Improves With: bronchodilators Worsens With: nothing, coughing Known History Of: COPD Context: allergen exposure (pepsticide exposure environmental ) Associated Symptoms: cough Treatments Prior to Arrival: none - Related Data Home Oxygen Therapy: No Home Medications Medication Instructions Recorded Confirmed Last Taken Fexofenadine HCl 180 mg PO DAILY 11/23/16 01/07/18 11/22/16 hydroCHLOROthiazide [HCTZ] 25 mg PO DAILY 11/23/16 01/07/18 11/22/16 Sertraline [Zoloft] 25 mg PO QDAY 01/07/18 01/07/18 Unknown Previous Rx's Medication Instructions Recorded Last Taken Type Meclizine [Antivert] 25 mg PO TID PRN #20 tablet 10/28/17 Unknown Rx Ondansetron [Zofran ODT TAB] 8 mg PO Q8HR #20 tab.rapdis 10/28/17 Unknown Rx Benzonatate [Tessalon Perles] 200 mg PO Q8HR PRN #20 capsule 01/10/18 Unknown Rx Prednisone [predniSONE 5 mg (6-Day 5 mg PO .TAPER #1 tab.ds.pk 01/10/18 Unknown Rx Pack, 21 Tabs)] Azithromycin [Zithromax Z-NA] 250 mg PO DAILY #6 tab 08/27/18 Unknown Rx Benzonatate [Tessalon Perles] 100 mg PO Q8HR PRN #30 capsule 08/27/18 Unknown Rx Ibuprofen 800 mg PO TID PRN #30 tablet 08/27/18 Unknown Rx predniSONE [Deltasone] 40 mg PO QDAY 5 Days #10 tab 08/27/18 Unknown Rx Allergies Allergy/AdvReac Type Severity Reaction Status Date / Time amoxicillin [Amoxicillin] Allergy Shortness Verified 04/10/15 02:49 of Breath ampicillin Allergy Shortness Verified 04/10/15 02:49 of Breath codeine Allergy Shortness Verified 04/10/15 02:49 of Breath guaifenesin [From Robitussin] Allergy Swelling Verified 04/10/15 02:49 loperamide HCl Allergy Rash Verified 04/10/15 02:49 [From Imodium A-D] morphine Allergy Shortness Verified 04/10/15 02:49 of Breath Penicillins Allergy Shortness Verified 04/10/15 02:49 of Breath Sulfa (Sulfonamide Allergy Hives Verified 04/10/15 02:49 Antibiotics) Tetracyclines Allergy Shortness Verified 04/10/15 02:49 of Breath nyquill Allergy Rash Uncoded 04/10/15 02:49 ED Review of Systems ROS: Stated complaint: COPD/SOB Other details as noted in HPI Constitutional: denies: chills, fever Eyes: denies: eye pain, eye discharge, vision change ENT: denies: ear pain, throat pain Respiratory: cough, shortness of breath. denies: wheezing Cardiovascular: denies: chest pain, palpitations Endocrine: no symptoms reported Gastrointestinal: denies: abdominal pain, nausea, diarrhea Genitourinary: denies: urgency, dysuria, discharge Musculoskeletal: denies: back pain, joint swelling, arthralgia Skin: denies: rash, lesions Neurological: denies: headache, weakness, paresthesias Psychiatric: denies: anxiety, depression Hematological/Lymphatic: denies: easy bleeding, easy bruising ED Past Medical Hx - Past Medical History Previous Medical History?: Yes Hx Hypertension: Yes Hx Heart Attack/AMI: No Hx GERD: Yes Hx Liver Disease: No Hx Renal Disease: No Hx Seizures: No Hx Psychiatric Treatment: Yes (panic attacks) Hx Asthma: Yes Hx COPD: Yes Hx HIV: No Additional medical history: Pneumonia 07/09 - Surgical History Past Surgical History?: Yes Hx Cholecystectomy: Yes () Hx Breast Surgery: Yes Additional Surgical History: csection x 2, breast reduction / lymph node removal w skin graft - Social History Smoking Status: Never Smoker Substance Use Type: None - Medications Home Medications: Home Medications Medication Instructions Recorded Confirmed Last Taken Type Fexofenadine HCl 180 mg PO DAILY 05/04/17 06/18/18 05/03/17 History hydroCHLOROthiazide [HCTZ] 25 mg PO DAILY 11/23/16 01/07/18 11/22/16 History Meclizine [Antivert] 25 mg PO TID PRN #20 tablet 10/28/17 01/07/18 Unknown Rx Ondansetron [Zofran ODT TAB] 8 mg PO Q8HR #20 tab.rapdis 10/28/17 01/07/18 Unknown Rx Sertraline [Zoloft] 25 mg PO QDAY 01/07/18 01/07/18 Unknown History Benzonatate [Tessalon Perles] 200 mg PO Q8HR PRN #20 capsule 01/10/18 Unknown Rx Prednisone [predniSONE 5 mg (6-Day 5 mg PO .TAPER #1 tab.ds.pk 01/10/18 Unknown Rx Pack, 21 Tabs)] Azithromycin [Zithromax Z-NA] 250 mg PO DAILY #6 tab 08/27/18 Unknown Rx Benzonatate [Tessalon Perles] 100 mg PO Q8HR PRN #30 capsule 08/27/18 Unknown Rx Ibuprofen 800 mg PO TID PRN #30 tablet 08/27/18 Unknown Rx predniSONE [Deltasone] 40 mg PO QDAY 5 Days #10 tab 08/27/18 Unknown Rx ED Physical Exam - General Limitations: No Limitations General appearance: alert, in no apparent distress - Head Head exam: Present: atraumatic, normocephalic - Eye Eye exam: Present: PERRL, EOMI Pupils: Present: normal accommodation - ENT ENT exam: Present: normal orophraynx, mucous membranes moist, TM's normal bilaterally, normal external ear exam - Expanded ENT Exam Expanded Ear exam: Present: normal external inspection Mouth exam: Present: trismus Throat exam: Positive: tonsillar erythema, tonsillomegaly. Negative: tonsillar exudate, R peritonsillar mass, L peritonsillar mass - Neck Neck exam: Present: normal inspection, full ROM. Absent: tenderness, meningismus, lymphadenopathy, thyromegaly - Respiratory Respiratory exam: Present: normal lung sounds bilaterally. Absent: respiratory distress, wheezes, rhonchi, chest wall tenderness - Cardiovascular Cardiovascular Exam: Present: regular rate, normal rhythm. Absent: normal heart sounds, systolic murmur, diastolic murmur, rubs, gallop - GI/Abdominal GI/Abdominal exam: Present: soft, normal bowel sounds - Rectal Rectal exam: Present: deferred - Extremities Exam Extremities exam: Present: normal inspection, full ROM, normal capillary refill. Absent: tenderness, pedal edema, joint swelling, calf tenderness - Back Exam Back exam: Present: normal inspection, full ROM. Absent: tenderness, CVA tenderness (R), CVA tenderness (L), rash noted - Neurological Exam Neurological exam: Present: alert, oriented X3, CN II-XII intact, normal gait, reflexes normal - Psychiatric Psychiatric exam: Present: normal affect, normal mood - Skin Skin exam: Present: warm, dry, intact, normal color. Absent: rash ED Course Vital Signs 08/26/18 08/27/18 23:33 02:57 Temperature 99.8 F H 98.0 F Pulse Rate 71 64 Respiratory 18 18 Rate Blood Pressure 147/69 149/73 O2 Sat by Pulse 98 99 Oximetry ED Medical Decision Making - Lab Data Result diagrams: 08/27/18 00:51 08/27/18 00:51 Labs 08/27/18 08/27/18 00:51 00:51 WBC 7.2 RBC 5.13 H Hgb 12.3 Hct 38.7 MCV 76 L MCH 24 L MCHC 32 RDW 16.8 H Plt Count 366 Lymph % (Auto) 25.0 [place] % (Auto) 6.8 Eos % (Auto) 2.0 Baso % (Auto) 0.5 Lymph # 1.8 [place] # 0.5 Eos # 0.1 Baso # 0.0 Seg Neutrophils % 65.7 Seg Neutrophils # 4.7 Sodium 142 Potassium 3.6 Chloride 100.0 Carbon Dioxide 29 Anion Gap 17 BUN 11 Creatinine 0.8 Estimated GFR > 60 BUN/Creatinine Ratio 14 Glucose 106 H Calcium 9.2 Troponin T < 0.010 - Radiology Data Radiology results: report reviewed, image reviewed FINAL REPORT PROCEDURE: XR CHEST ROUTINE 2V TECHNIQUE: PA and lateral chest radiographs were obtained. CPT 06509 HISTORY: Shortness of breath COMPARISON: 03/29/2018 FINDINGS: Heart: Normal. Mediastinum/Vessels: Normal. Lungs/Pleural space: The lungs are expanded. There are no infiltrates, effusions or pneumothoraces. Bony thorax: No acute osseous abnormality. Other: IMPRESSION: There is no acute cardiopulmonary abnormality.. Transcribed By: CO Dictated By: MALLY BLACKMON MD Electronically Authenticated By: MALLY BLACKMON MD Signed Date/Time: 08/27/18121 DD/ 0 TD/TT: 08/27/18120 - Medical Decision Making Chest x-ray opacities no infiltrates chest x-ray consistent with COPD plan patient is BREO and albuterol for rescue inhaler has these in her possession, will add short burst steroid , zpack, ibuprofen and Tessalon Perles when necessary cough patient will follow in 2 days pcp will return to ED should symptoms worsen , pt is currently a/o x 3 ambulatory with nad no wheezing noted at this time, symptoms are improved. no cp no n/v no back pain no dizziness no light headedness Critical care attestation.: If time is entered above; I have spent that time in minutes in the direct care of this critically ill patient, excluding procedure time. ED Disposition Clinical Impression: Bronchitis COPD (chronic obstructive pulmonary disease) Qualifiers: COPD type: chronic bronchitis Chronic bronchitis type: unspecified Qualified Code(s): J42 - Unspecified chronic bronchitis Disposition: - TO HOME OR SELFCARE Is pt being admited?: No Does the pt Need Aspirin: No Condition: Stable Instructions: Chronic Obstructive Pulmonary Disease (ED), Chronic Bronchitis (ED) Prescriptions: Azithromycin [Zithromax Z-NA] 250 mg PO DAILY #6 tab Benzonatate [Tessalon Perles] 100 mg PO Q8HR PRN #30 capsule PRN Reason: Cough Ibuprofen 800 mg PO TID PRN #30 tablet PRN Reason: pain predniSONE [Deltasone] 40 mg PO QDAY 5 Days #10 tab Referrals: KATINA GIBBONS MD [Primary Care Provider] - 3-5 Days Forms: Work/School Release Form(ED) Time of Disposition: 07:09
== END 2018-08-27 07:22 | disposition home or self-care (01) ==
LOC: ED 08-27 02:49
DX: J42 Unspecified chronic bronchitis (principal); I10 Essential (primary) hypertension; K21.9 Gastro-esophageal reflux disease without esophagitis; Z90.49 Acquired absence of other specified parts of digestive tract; Z88.1 Allergy status to other antibiotic agents; Z88.6 Allergy status to analgesic agent; Z88.5 Allergy status to narcotic agent; Z88.2 Allergy status to sulfonamides; Z88.0 Allergy status to penicillin; Z88.8 Allergy status to other drugs, medicaments and biological substances
CPT/HCPCS: 36415; 71046; 80048; 84484; 85025; 93005; 93010

== ENCOUNTER 2018-09-20 18:49 | Emergency (ER) | payer OTHER ==
--- NOTE | 2018-09-20 19:54 | Emergency Department Report ---
Blank Doc - Documentation Documentation: This is a 52 y.o. female that presents with SOB. History of COPD. Reports se nsation of heaviness in lungs. Denies cough. This initial assessment diagnostic orders/clinical plan/treatment (s) is/Are subject change based on patient's health status, clinical progression and re- assessment by fellow clinical providers in the ED. Further treatment and work-up at subsequent clinical providers discretion. Patient/guardians urged not to elope from their condition may be serious if not clinically assessed and managed. Initial order include: Labs, EKG, & CXR. Fast track for further evaluation.
[2018-09-20 20:28] LABS: Basophils % (Auto) 0.2 % (0.0-1.8); Eosinophils # (Auto) 0.1 K/mm3 (0.0-0.4); Eosinophils % (Auto) 0.9 % (0.0-4.3); Hematocrit 36.7 % (30.3-42.9); Hemoglobin 11.4 gm/dl (10.1-14.3); Lymphocytes # (Auto) 2.7 K/mm3 (1.2-5.4); Lymphocytes % (Auto) 30.9 % (13.4-35.0); Mean Corpuscular HGB Conc 31 % (30-34); Mean Corpuscular Volume 77 fl (79-97); Monocytes # (Auto) 0.6 K/mm3 (0.0-0.8); Monocytes % (Auto) 7.3 % (0.0-7.3); Platelet Count 336 K/mm3 (140-440); Red Blood Count 4.76 M/mm3 (3.65-5.03); Red Cell Distribution Width 16.7 % (13.2-15.2)
--- NOTE | 2018-09-20 20:40 | XRay Report ---
PROCEDURE: XR CHEST ROUTINE 2V TECHNIQUE: PA and lateral chest radiographs were obtained. HISTORY: Shortness of breath COMPARISONS: CXR 08/27/2018. FINDINGS: Heart: Borderline prominent but stable. Mediastinum/Vessels: Normal. Lungs/Pleural space: Normal. Bony thorax: No acute osseous abnormality. IMPRESSION: No acute cardiopulmonary process. Heart size is borderline prominent but stable This document is electronically signed by Natacha Collins MD., September 20 2018 08:37:50 PM ET
[2018-09-20 20:41] LABS: BUN/Creatinine Ratio 22; Blood Urea Nitrogen 13 mg/dL (7-17); Calcium 8.5 mg/dL (8.4-10.2); Hemolysis Index 4
[2018-09-20] MEDS ORDERED: PROVENTIL IH ONE (21:32)
[2018-09-20] MEDS ORDERED: DELTASONE PO ONE (21:33)
[2018-09-20] MEDS ORDERED: ATROVENT IH ONE (21:33)
--- NOTE | 2018-09-20 23:09 | Emergency Department Report ---
ED General Adult HPI - General Chief complaint: Dyspnea/Respdistress Stated complaint: SOB Time Seen by Provider: 09/20/18 19:50 Source: patient Mode of arrival: Ambulatory Limitations: No Limitations - History of Present Illness Initial comments: Patient is a 52-year-old female past medical history restrictive lung disease who presents with shortness of breath. Patient states that her shortness of breath occurred since once after she got a colonoscopy done. It is moderate she is out of her medication for her nebulizer machine. Her triggers are weather change nothing makes it better and nothing makes it worse she's never been intubated for this before. Severity scale (0 -10): 0 - Related Data Home Medications Medication Instructions Recorded Confirmed Last Taken Fexofenadine HCl 180 mg PO DAILY 11/23/16 01/07/18 11/22/16 hydroCHLOROthiazide [HCTZ] 25 mg PO DAILY 11/23/16 01/07/18 11/22/16 Sertraline [Zoloft] 25 mg PO QDAY 01/07/18 01/07/18 Unknown Previous Rx's Medication Instructions Recorded Last Taken Type Meclizine [Antivert] 25 mg PO TID PRN #20 tablet 10/28/17 Unknown Rx Ondansetron [Zofran ODT TAB] 8 mg PO Q8HR #20 tab.rapdis 10/28/17 Unknown Rx Benzonatate [Tessalon Perles] 200 mg PO Q8HR PRN #20 capsule 01/10/18 Unknown Rx Prednisone [predniSONE 5 mg (6-Day 5 mg PO .TAPER #1 tab.ds.pk 01/10/18 Unknown Rx Pack, 21 Tabs)] Azithromycin [Zithromax Z-NA] 250 mg PO DAILY #6 tab 08/27/18 Unknown Rx Benzonatate [Tessalon Perles] 100 mg PO Q8HR PRN #30 capsule 08/27/18 Unknown Rx Ibuprofen 800 mg PO TID PRN #30 tablet 08/27/18 Unknown Rx Albuterol Sulfate [Albuterol 0.63% 0.63 mg IH TID PRN #1 box 09/20/18 Unknown Rx NEBS] Ipratropium [Atrovent NEB] 0.5 mg IH Q6HRT #1 box 09/20/18 Unknown Rx predniSONE [Deltasone] 40 mg PO QDAY 5 Days #10 tab 09/20/18 Unknown Rx Allergies Allergy/AdvReac Type Severity Reaction Status Date / Time amoxicillin [Amoxicillin] Allergy Shortness Verified 04/10/15 02:49 of Breath ampicillin Allergy Shortness Verified 04/10/15 02:49 of Breath codeine Allergy Shortness Verified 04/10/15 02:49 of Breath guaifenesin [From Robitussin] Allergy Swelling Verified 04/10/15 02:49 loperamide HCl Allergy Rash Verified 04/10/15 02:49 [From Imodium A-D] morphine Allergy Shortness Verified 04/10/15 02:49 of Breath Penicillins Allergy Shortness Verified 04/10/15 02:49 of Breath Sulfa (Sulfonamide Allergy Hives Verified 04/10/15 02:49 Antibiotics) Tetracyclines Allergy Shortness Verified 04/10/15 02:49 of Breath nyquill Allergy Rash Uncoded 04/10/15 02:49 ED Review of Systems ROS: Stated complaint: SOB Other details as noted in HPI Constitutional: denies: chills, fever Eyes: denies: eye pain, eye discharge, vision change ENT: denies: ear pain, throat pain Respiratory: shortness of breath. denies: cough, wheezing Cardiovascular: denies: chest pain, palpitations Endocrine: no symptoms reported Gastrointestinal: denies: abdominal pain, nausea, diarrhea Genitourinary: denies: urgency, dysuria, discharge Musculoskeletal: denies: back pain, joint swelling, arthralgia Skin: denies: rash, lesions Neurological: denies: headache, weakness, paresthesias Psychiatric: denies: anxiety, depression Hematological/Lymphatic: denies: easy bleeding, easy bruising ED Past Medical Hx - Past Medical History Previous Medical History?: Yes Hx Hypertension: Yes Hx Heart Attack/AMI: No Hx GERD: Yes Hx Liver Disease: No Hx Renal Disease: No Hx Seizures: No Hx Psychiatric Treatment: Yes (panic attacks) Hx Asthma: Yes Hx COPD: Yes Hx HIV: No Additional medical history: Pneumonia 07/09 - Surgical History Past Surgical History?: Yes Hx Cholecystectomy: Yes () Hx Breast Surgery: Yes Additional Surgical History: csection x 2, breast reduction / lymph node removal w skin graft - Social History Smoking Status: Never Smoker Substance Use Type: None - Medications Home Medications: Home Medications Medication Instructions Recorded Confirmed Last Taken Type Fexofenadine HCl 180 mg PO DAILY 11/23/16 01/07/18 11/22/16 History hydroCHLOROthiazide [HCTZ] 25 mg PO DAILY 11/23/16 01/07/18 11/22/16 History Meclizine [Antivert] 25 mg PO TID PRN #20 tablet 10/28/17 01/07/18 Unknown Rx Ondansetron [Zofran ODT TAB] 8 mg PO Q8HR #20 tab.rapdis 10/28/17 01/07/18 Unknown Rx Sertraline [Zoloft] 25 mg PO QDAY 01/07/18 01/07/18 Unknown History Benzonatate [Tessalon Perles] 200 mg PO Q8HR PRN #20 capsule 01/10/18 Unknown Rx Prednisone [predniSONE 5 mg (6-Day 5 mg PO .TAPER #1 tab.ds.pk 01/10/18 Unknown Rx Pack, 21 Tabs)] Azithromycin [Zithromax Z-NA] 250 mg PO DAILY #6 tab 08/27/18 Unknown Rx Benzonatate [Tessalon Perles] 100 mg PO Q8HR PRN #30 capsule 08/27/18 Unknown Rx Ibuprofen 800 mg PO TID PRN #30 tablet 08/27/18 Unknown Rx Albuterol Sulfate [Albuterol 0.63% 0.63 mg IH TID PRN #1 box 09/20/18 Unknown Rx NEBS] Ipratropium [Atrovent NEB] 0.5 mg IH Q6HRT #1 box 09/20/18 Unknown Rx predniSONE [Deltasone] 40 mg PO QDAY 5 Days #10 tab 09/20/18 Unknown Rx ED Physical Exam - General Limitations: No Limitations General appearance: alert, in no apparent distress - Head Head exam: Present: atraumatic, normocephalic - Eye Eye exam: Present: normal appearance - ENT ENT exam: Present: mucous membranes moist - Neck Neck exam: Present: normal inspection - Respiratory Respiratory exam: Present: normal lung sounds bilaterally. Absent: respiratory distress - Cardiovascular Cardiovascular Exam: Present: regular rate, normal rhythm. Absent: systolic murmur, diastolic murmur, rubs, gallop - GI/Abdominal GI/Abdominal exam: Present: soft, normal bowel sounds - Extremities Exam Extremities exam: Present: normal inspection - Back Exam Back exam: Present: normal inspection - Neurological Exam Neurological exam: Present: alert, oriented X3 - Psychiatric Psychiatric exam: Present: normal affect, normal mood - Skin Skin exam: Present: warm, dry, intact, normal color. Absent: rash ED Course Vital Signs 09/20/18 19:24 Temperature 98.4 F Pulse Rate 66 Respiratory 20 Rate Blood Pressure 144/74 O2 Sat by Pulse 98 Oximetry ED Medical Decision Making - Lab Data Result diagrams: 09/20/18 19:57 09/20/18 19:57 Lab Results 09/20/18 09/20/18 Range/Units 19:57 19:57 WBC 8.6 (4.5-11.0) K/mm3 RBC 4.76 (3.65-5.03) M/mm3 Hgb 11.4 (10.1-14.3) gm/dl Hct 36.7 (30.3-42.9) % MCV 77 L (79-97) fl MCH 24 L (28-32) pg MCHC 31 (30-34) % RDW 16.7 H (13.2-15.2) % Plt Count 336 (140-440) K/mm3 Lymph % (Auto) 30.9 (13.4-35.0) % [place] % (Auto) 7.3 (0.0-7.3) % Eos % (Auto) 0.9 (0.0-4.3) % Baso % (Auto) 0.2 (0.0-1.8) % Lymph # 2.7 (1.2-5.4) K/mm3 [place] # 0.6 (0.0-0.8) K/mm3 Eos # 0.1 (0.0-0.4) K/mm3 Baso # 0.0 (0.0-0.1) K/mm3 Seg Neutrophils % 60.7 (40.0-70.0) % Seg Neutrophils # 5.2 (1.8-7.7) K/mm3 Sodium 141 (137-145) mmol/L Potassium 4.1 (3.6-5.0) mmol/L Chloride 101.2 (98-107) mmol/L Carbon Dioxide 27 (22-30) mmol/L Anion Gap 17 mmol/L BUN 13 (7-17) mg/dL Creatinine 0.6 L (0.7-1.2) mg/dL Estimated GFR > 60 ml/min BUN/Creatinine Ratio 22 % Glucose 85 (65-100) mg/dL Calcium 8.5 (8.4-10.2) mg/dL - Radiology Data Radiology results: report reviewed, image reviewed Chest x-ray: Shows no acute cardiopulmonary disease - Medical Decision Making Chief medical diagnosis: Restrictive lung disease Differential diagnosis: Pneumonia, bronchitis, I will get chest x-ray and I'll give patient a breathing treatment and steroids and I will send patient home. Critical care attestation.: If time is entered above; I have spent that time in minutes in the direct care of this critically ill patient, excluding procedure time. ED Disposition Clinical Impression: Asthma exacerbation Qualifiers: Asthma severity: unspecified severity Asthma persistence: unspecified Qualified Code(s): J45.901 - Unspecified asthma with (acute) exacerbation Disposition: DC-01 TO HOME OR SELFCARE Is pt being admited?: No Does the pt Need Aspirin: No Condition: Stable Instructions: Asthma (ED) Prescriptions: Albuterol Sulfate [Albuterol 0.63% NEBS] 0.63 mg IH TID PRN #1 box PRN Reason: Wheezing Ipratropium [Atrovent NEB] 0.5 mg IH Q6HRT #1 box predniSONE [Deltasone] 40 mg PO QDAY 5 Days #10 tab Referrals: KATINA GIBBONS MD [Primary Care Provider] - 3-5 Days
[2018-09-21 01:54] VITALS: BP 129/74
== END 2018-09-20 23:00 | disposition home or self-care (01) ==
LOC: ED 18:49
DX: J45.901 Unspecified asthma with (acute) exacerbation (principal); I10 Essential (primary) hypertension; K21.9 Gastro-esophageal reflux disease without esophagitis; J44.9 Chronic obstructive pulmonary disease, unspecified; Z90.49 Acquired absence of other specified parts of digestive tract; Z88.6 Allergy status to analgesic agent; Z88.1 Allergy status to other antibiotic agents; Z88.8 Allergy status to other drugs, medicaments and biological substances
CPT/HCPCS: 36415; 71046; 80048; 85025; 93005; 93010; 94640; 99284; J7512

== ENCOUNTER 2018-09-21 03:55 | Emergency (ER) | payer OTHER ==
[2018-09-21 04:11] VITALS: BP 142/90
== END 2018-09-21 06:26 | disposition left against medical advice (07) ==
LOC: ED 03:55
DX: R06.02 Shortness of breath (principal); Z53.21 Procedure and treatment not carried out due to patient leaving prior to being seen by health care provider

== ENCOUNTER 2018-12-07 23:57 | Emergency (ER) | payer OTHER ==
[2018-12-08 00:28] LABS: Hematocrit 37.3 % (30.3-42.9); Hemoglobin 12.2 gm/dl (10.1-14.3); Mean Corpuscular HGB Conc 33 % (30-34); Mean Corpuscular Volume 76 fl (79-97); Platelet Count 404 K/mm3 (140-440); Red Blood Count 4.91 M/mm3 (3.65-5.03); Red Cell Distribution Width 16.6 % (13.2-15.2)
[2018-12-08 00:47] LABS: BUN/Creatinine Ratio 17; Blood Urea Nitrogen 19 mg/dL (7-17); Calcium 9.3 mg/dL (8.4-10.2); Hemolysis Index 10
--- NOTE | 2018-12-08 00:53 | Emergency Department Report ---
ED Shortness of Breath HPI - General Chief Complaint: Chest Pain Stated Complaint: PASSED OUT/CHEST PAIN/SOB Time Seen by Provider: 12/08/18 00:21 Source: patient Mode of arrival: Wheelchair Limitations: Other - History of Present Illness Initial Comments: Ms. Sotelo is a 53 yo female with hx of COPD, HTN, severe obesity, anxiety who presents with shortness of breath. She felt as if she had an anxiety attack while riding back from [place]. Her family noticed that she was just out of it. She breathing on her own. +wheezing +cough-non productive She also noticed chest pain which is typical for her COPD attacks. Central chest pain transient nondescript. recently started steroid taper PCP Dr. Crow NOBLE Complaint: shortness of breath -: Gradual, days(s) (2) Severity: moderate Consistency: constant Improves With: bronchodilators Known History Of: COPD Associated Symptoms: cough, sputum production - Related Data Home Medications Medication Instructions Recorded Confirmed Last Taken Fexofenadine HCl 180 mg PO DAILY 11/23/16 01/07/18 11/22/16 hydroCHLOROthiazide [HCTZ] 25 mg PO DAILY 11/23/16 01/07/18 11/22/16 Sertraline [Zoloft] 25 mg PO QDAY 01/07/18 01/07/18 Unknown Previous Rx's Medication Instructions Recorded Last Taken Type Meclizine [Antivert] 25 mg PO TID PRN #20 tablet 10/28/17 Unknown Rx Ondansetron [Zofran ODT TAB] 8 mg PO Q8HR #20 tab.rapdis 10/28/17 Unknown Rx Benzonatate [Tessalon Perles] 200 mg PO Q8HR PRN #20 capsule 01/10/18 Unknown Rx Prednisone [predniSONE 5 mg (6-Day 5 mg PO .TAPER #1 tab.ds.pk 01/10/18 Unknown Rx Pack, 21 Tabs)] Azithromycin [Zithromax Z-NA] 250 mg PO DAILY #6 tab 08/27/18 Unknown Rx Benzonatate [Tessalon Perles] 100 mg PO Q8HR PRN #30 capsule 08/27/18 Unknown Rx Ibuprofen [Ibuprofen 800] 800 mg PO TID PRN #30 tablet 08/27/18 Unknown Rx Albuterol Sulfate [Albuterol 0.63% 0.63 mg IH TID PRN #1 box 03/01/19 Unknown Rx NEBS] Ipratropium [Atrovent NEB] 0.5 mg IH Q6HRT #1 box 09/20/18 Unknown Rx predniSONE [Deltasone] 40 mg PO QDAY 5 Days #10 tab 09/20/18 Unknown Rx Allergies Allergy/AdvReac Type Severity Reaction Status Date / Time amoxicillin [Amoxicillin] Allergy Shortness Verified 04/10/15 02:49 of Breath ampicillin Allergy Shortness Verified 04/10/15 02:49 of Breath codeine Allergy Shortness Verified 04/10/15 02:49 of Breath guaifenesin [From Robitussin] Allergy Swelling Verified 04/10/15 02:49 loperamide HCl Allergy Rash Verified 04/10/15 02:49 [From Imodium A-D] morphine Allergy Shortness Verified 04/10/15 02:49 of Breath Penicillins Allergy Shortness Verified 04/10/15 02:49 of Breath Sulfa (Sulfonamide Allergy Hives Verified 04/10/15 02:49 Antibiotics) Tetracyclines Allergy Shortness Verified 04/10/15 02:49 of Breath nyquill Allergy Rash Uncoded 04/10/15 02:49 ED Review of Systems ROS: Stated complaint: PASSED OUT/CHEST PAIN/SOB Other details as noted in HPI Comment: All other systems reviewed and negative Constitutional: denies: fever, malaise Respiratory: cough, shortness of breath, wheezing Cardiovascular: chest pain ED Past Medical Hx - Past Medical History Previous Medical History?: Yes Hx Hypertension: Yes Hx Heart Attack/AMI: No Hx GERD: Yes Hx Liver Disease: No Hx Renal Disease: No Hx Seizures: No Hx Psychiatric Treatment: Yes (panic attacks) Hx Asthma: Yes Hx COPD: Yes Hx HIV: No Additional medical history: Pneumonia 07/09 - Surgical History Past Surgical History?: Yes Hx Cholecystectomy: Yes () Hx Breast Surgery: Yes Additional Surgical History: csection x 2, breast reduction / lymph node removal w skin graft - Social History Smoking Status: Never Smoker Substance Use Type: None - Medications Home Medications: Home Medications Medication Instructions Recorded Confirmed Last Taken Type Fexofenadine HCl 180 mg PO DAILY 11/23/16 01/07/18 11/22/16 History hydroCHLOROthiazide [HCTZ] 25 mg PO DAILY 11/23/16 01/07/18 11/22/16 History Meclizine [Antivert] 25 mg PO TID PRN #20 tablet 10/28/17 01/07/18 Unknown Rx Ondansetron [Zofran ODT TAB] 8 mg PO Q8HR #20 tab.rapdis 10/28/17 01/07/18 Unknown Rx Sertraline [Zoloft] 25 mg PO QDAY 01/07/18 01/07/18 Unknown History Benzonatate [Tessalon Perles] 200 mg PO Q8HR PRN #20 capsule 01/10/18 Unknown Rx Prednisone [predniSONE 5 mg (6-Day 5 mg PO .TAPER #1 tab.ds.pk 01/10/18 Unknown Rx Pack, 21 Tabs)] Azithromycin [Zithromax Z-NA] 250 mg PO DAILY #6 tab 08/27/18 Unknown Rx Benzonatate [Tessalon Perles] 100 mg PO Q8HR PRN #30 capsule 08/27/18 Unknown Rx Ibuprofen [Ibuprofen 800] 800 mg PO TID PRN #30 tablet 08/27/18 Unknown Rx Albuterol Sulfate [Albuterol 0.63% 0.63 mg IH TID PRN #1 box 09/20/18 Unknown Rx NEBS] Ipratropium [Atrovent NEB] 0.5 mg IH Q6HRT #1 box 09/20/18 Unknown Rx predniSONE [Deltasone] 40 mg PO QDAY 5 Days #10 tab 09/20/18 Unknown Rx ED Physical Exam - General Limitations: Other General appearance: alert, in no apparent distress - Head Head exam: Present: atraumatic, normocephalic - Eye Eye exam: Present: normal appearance - ENT ENT exam: Present: mucous membranes moist - Neck Neck exam: Present: normal inspection, full ROM - Respiratory Respiratory exam: Present: normal lung sounds bilaterally. Absent: respiratory distress, wheezes, rales, rhonchi - Cardiovascular Cardiovascular Exam: Present: regular rate, normal rhythm, normal heart sounds. Absent: systolic murmur, diastolic murmur, rubs, gallop - GI/Abdominal GI/Abdominal exam: Present: soft, normal bowel sounds. Absent: distended, tenderness, guarding, rebound - Extremities Exam Extremities exam: Present: normal inspection - Back Exam Back exam: Present: normal inspection - Neurological Exam Neurological exam: Present: alert, oriented X3 - Psychiatric Psychiatric exam: Present: normal affect, normal mood - Skin Skin exam: Present: warm, dry, intact, normal color. Absent: rash ED Medical Decision Making - Lab Data Result diagrams: 12/08/18 00:17 - EKG Data EKG shows normal: sinus rhythm, axis, intervals, QRS complexes, ST-T waves Rate: normal - EKG Data Interpretation: no acute changes, normal EKG - Radiology Data Radiology results: report reviewed, image reviewed interpreted by me: Chest x-ray PA and lateral: No acute process, no infiltrate, no pneumothorax - Medical Decision Making Mrs. Sotelo presents with COPD exacerbation. No indication of pulmonary embolism was heart rate 75. No indication of ACS with normal EKG and troponin. She was given albuterol Atrovent treatment in the ED. Discharged home in stable condition. Critical care attestation.: If time is entered above; I have spent that time in minutes in the direct care of this critically ill patient, excluding procedure time. ED Disposition Clinical Impression: COPD (chronic obstructive pulmonary disease) Disposition: DC-01 TO HOME OR SELFCARE Is pt being admited?: No Does the pt Need Aspirin: No Condition: Stable Instructions: Chronic Obstructive Pulmonary Disease (ED)
[2018-12-08] MEDS ORDERED: ULTRAM PO ONE (00:54)
[2018-12-08] MEDS ORDERED: DUONEB *Not for PRN Use IH ONE (00:54)
--- NOTE | 2018-12-08 01:14 | XRay Report ---
PROCEDURE: XR CHEST 1V AP TECHNIQUE: Chest radiograph single view. HISTORY: Chest Pain COMPARISONS: September 20, 2018 . FINDINGS: Heart: Normal. Mediastinum/Vessels: Normal. Lungs/Pleural space: Normal. Bony thorax: No acute osseous abnormality. Life support devices: None. IMPRESSION: No acute cardiopulmonary abnormality. This document is electronically signed by Sheldon Garzon MD., Dec 08 2018 01:12:43 AM ET
[2018-12-08 02:00] VITALS: BP 136/74
[2018-12-08 04:07] LABS: Anisocytosis 1+; Band Neutrophils # (Manual) 0.2 K/mm3; Basophils % (Manual) 0 % (0.0-1.8); Eosinophils % (Manual) 0 % (0.0-4.3); Hypochromasia 1+; Total Cells Counted 100
== END 2018-12-08 02:35 | disposition home or self-care (01) ==
LOC: ED 23:57
DX: J44.1 Chronic obstructive pulmonary disease with (acute) exacerbation (principal); I10 Essential (primary) hypertension; K21.9 Gastro-esophageal reflux disease without esophagitis; F41.0 Panic disorder [episodic paroxysmal anxiety]; E66.01 Morbid (severe) obesity due to excess calories; Z68.43 Body mass index [BMI] 50.0-59.9, adult; Z88.0 Allergy status to penicillin; Z88.1 Allergy status to other antibiotic agents; Z88.2 Allergy status to sulfonamides; Z88.5 Allergy status to narcotic agent; Z87.01 Personal history of pneumonia (recurrent)
CPT/HCPCS: 36415; 71045; 80048; 84484; 85007; 85025; 93005; 93010; 94640

== ENCOUNTER 2019-01-15 10:39 | Outpatient (CLI) | payer OTHER ==
[2019-01-15 11:18] LABS: Hematocrit 36.1 % (30.3-42.9); Hemoglobin 11.7 gm/dl (10.1-14.3); Mean Corpuscular HGB Conc 33 % (30-34); Mean Corpuscular Volume 76 fl (79-97); Platelet Count 344 K/mm3 (140-440); Red Blood Count 4.78 M/mm3 (3.65-5.03)
[2019-01-15 11:48] LABS: Alanine Aminotransferase 13 units/L (7-56); Albumin 3.5 g/dL (3.9-5); BUN/Creatinine Ratio 20; Blood Urea Nitrogen 14 mg/dL (7-17); Calcium 8.4 mg/dL (8.4-10.2); Hemolysis Index 7
--- NOTE | 2019-01-15 12:13 | XRay Report ---
XRAY CHEST TWO VIEWS: 01/15/19 10:39:00 CLINICAL: Cough. COMPARISON: 12/08/18 FINDINGS: The heart is borderline enlarged.The right pulmonary artery is prominent due to rotation and the pulmonary vessels are normal. Mild platelike atelectasis in the left lower lobe. Lungs are otherwise clear. No airspace disease or pleural effusion.Spondylosis of the thoracic spine. IMPRESSION: Subsegmental atelectasis of the left lower lobe.No CHF or pneumonia.
== END 2019-01-15 10:40 | disposition home or self-care (01) ==
LOC: XRAY 10:39
PROVIDERS: ATTEND Internal Medicine
DX: J98.11 Atelectasis (principal); J44.9 Chronic obstructive pulmonary disease, unspecified; I10 Essential (primary) hypertension; E66.01 Morbid (severe) obesity due to excess calories; K21.9 Gastro-esophageal reflux disease without esophagitis
CPT/HCPCS: 36415; 36600; 71046; 80053; 82785; 82803; 85027

== ENCOUNTER 2021-03-30 08:15 | Day surgery (SDC) | payer OTHER ==
--- NOTE | 2021-03-24 11:06 | Anesthesia Consultation ---
Anesthesia Consult and Med Hx Date of service: 03/30/21 - Airway Anesthetic Teeth Evaluation: Chipped ROM Head & Neck: Adequate Mental/Hyoid Distance: Adequate Mallampati Class: Class II Intubation Access Assessment: Possibly Difficult - Pulmonary Exam CTA: Yes - Cardiac Exam Cardiac Exam: RRR - Pre-Operative Health Status ASA Pre-Surgery Classification: ASA3 Proposed Anesthetic Plan: General - Pulmonary Hx Smoking: No Hx Asthma: Yes SOB: Yes COPD: Yes Hx Pneumonia: No Hx Sleep Apnea: Yes (No CPAP) - Cardiovascular System Hx Hypertension: Yes Hx Coronary Artery Disease: No Hx Heart Attack/AMI: No Hx Angina: No Hx Cardia Arrhythmia: Yes (h/o palpitations per patient. Cardiac cath last month per patient in chart ) - Central Nervous System Hx Seizures: No CVA: No Hx Psychiatric Problems: Yes - Gastrointestinal Hx Gastroesophageal Reflux Disease: No - Endocrine Hx Renal Disease: No Hx Liver Disease: No Hx Non-Insulin Dependent Diabetes: No Hx Thyroid Disease: No - Hematic Hx Anemia: Yes - Other Systems Hx Cancer: No Hx Obesity: Yes (BMI 58) - Additional Comments Anesthesia Medical History Comments: no gac, no fhac
[2021-03-24 11:22] LABS: Blood Urea Nitrogen 9 mg/dL (7-17); Calcium 9.3 mg/dL (8.4-10.2); Hemolysis Index 5
[2021-03-24 11:30] LABS: BUN/Creatinine Ratio 15
[2021-03-24 11:49] LABS: Mean Corpuscular HGB Conc 32 % (30-34); Mean Corpuscular Volume 75 fl (79-97); Platelet Count 347 K/mm3 (140-440); Red Blood Count 5.04 M/mm3 (3.65-5.03)
[~2021-03-30 08:15] MED LIST: LACTATED RINGERS 1,000 ML IV SCH; SCOPOLAMINE TRANSDERMAL PATCH 72 HR TD NR
[2021-03-30] MEDS ORDERED: HYDROmorphone 1 MG/1 ML INJ IV PRN ×2 (09:24→09:30)
--- NOTE | 2021-03-30 09:24 | Anesthesia Day of Surgery ---
Anesthesia Day of Surgery - Day of Surgery Patient Examined: Yes Patient H&P Reviewed: Yes Patient is NPO: Yes
[2021-03-30] MEDS ORDERED: ONDANSETRON 4 MG/2 ML INJ IV PRN (09:30)
--- NOTE | 2021-03-30 09:41 | Short Stay Summary ---
Short Stay Documentation Date of service: 03/30/21 Narrative H&P: 55y/o with persistent vaginal bleeding. Endometrial biopsy was benign. Patient has failed medical management for her symptoms - History Principal diagnosis: Abnormal uterine bleeding Past Medical History: COPD, hypertension, other (asthma; morbid obesity) Past Surgical History: cholecystectomy, , Other (breast reduction; tubal ligation) Social history: - Allergies and Medications Current Medications: Allergies amoxicillin [Amoxicillin] Allergy (Verified 03/22/21 17:57) Shortness of Breath ampicillin Allergy (Verified 03/22/21 17:58) Anaphylaxis codeine Allergy (Verified 03/22/21 17:58) Anaphylaxis guaifenesin [From Robitussin] Allergy (Verified 03/22/21 17:58) Anaphylaxis loperamide HCl [From Imodium A-D] Allergy (Verified 03/22/21 17:58) Anaphylaxis morphine Allergy (Verified 03/22/21 17:58) Anaphylaxis Penicillins Allergy (Verified 03/22/21 17:58) Anaphylaxis ascencion Allergy (Verified 03/22/21 17:58) Anaphylaxis Sulfa (Sulfonamide Antibiotics) Allergy (Verified 03/22/21 17:58) Anaphylaxis Tetracyclines Allergy (Verified 03/22/21 17:58) Anaphylaxis nyquill Allergy (Uncoded 03/22/21 17:58) Anaphylaxis Home Medications Medication Instructions Recorded Confirmed Last Taken Type Fexofenadine HCl 180 mg PO DAILY 11/23/16 03/22/21 11/22/16 History Sertraline [Zoloft] 100 mg PO QDAY 01/07/18 03/22/21 Unknown History Albuterol Sulfate [Albuterol 0.63% 0.63 mg IH TID PRN #1 box 09/20/18 03/22/21 Unknown Rx NEBS] Aspirin [Adult Aspirin] 81 mg PO DAILY 03/22/21 03/22/21 Unknown History Fluticasone [Flonase] 2 spray NS QDAY 03/22/21 03/22/21 Unknown History Fluticasone/Umeclidin/Vilanter 1 each IH DAILY 03/22/21 03/22/21 Unknown History [Trelegy Ellipta 200-62.5-25] Furosemide [Lasix TAB] 40 mg PO QDAY 03/22/21 03/22/21 Unknown History Ipratropium [Atrovent NEB] 0.5 mg IH Q6HRT PRN 03/22/21 03/22/21 Unknown History Losartan [Cozaar] 50 mg PO QDAY 03/22/21 03/22/21 Unknown History Active Medications Hydromorphone HCl (Hydromorphone 1 Mg/1 Ml Inj) 0.25 mg IV Q10MIN PRN PRN Reason: Pain, Moderate (4-6) Stop: 03/30/21 17:00 Hydromorphone HCl (Hydromorphone 1 Mg/1 Ml Inj) 0.5 mg IV Q10MIN PRN PRN Reason: Pain , Severe (7-10) Lactated Ringer's (Lactated Ringers) 1,000 mls @ 100 mls/hr IV DIRECT FELICITA Stop: 03/30/21 23:59 Midazolam HCl (Midazolam 2 Mg/2 Ml Inj) 2 mg IV PREOP NR Stop: 03/30/21 23:59 Ondansetron HCl (Ondansetron 4 Mg/2 Ml Inj) 4 mg IV ONCE PRN PRN Reason: Nausea And Vomiting Stop: 03/30/21 17:30 Scopolamine (Scopolamine Transdermal Patch 72 Hr) 1 each TD PREOP NR Stop: 03/30/21 23:00 - Physical exam General appearance: no acute distress Integumentary: no rash HEENT: Atraumatic Lungs: Clear to auscultation Breasts: deferred Heart: Regular rate Gastrointestinal: normal Female Genitourinary: deferred Rectal Exam: deferred - Brief post op/procedure progress note Date of procedure: 03/30/21 Pre-op diagnosis: Abnormal uterine bleeding Post-op diagnosis: same Procedure: Hysteroscopy Dilatation curettage Anesthesia: GETA Surgeon: IRAJ FERNANDES Estimated blood loss: minimal Pathology: list (Endometrial curettings) Specimen disposition: to lab Condition: stable - Hospital course Hospital course: The patient was admitted the day of surgery and underwent a hysteroscopy dilatation curettage. Please see operative note for details of surgery. Postoperative course was uneventful. - Disposition Condition at discharge: Good Disposition: 01 HOME / SELF CARE / HOMELESS Short Stay Discharge Plan Activity: other (Pelvic rest for 1 week) Diet: regular Additional Instructions: Schedule follow-up with Dr. Fernandes in 2 weeks Prescriptions: Ibuprofen [Motrin] 800 mg PO Q8HR PRN #30 tablet PRN Reason: Pain , Severe (7-10)
[2021-03-30] MEDS ORDERED: MIDAZOLAM 2 MG/2 ML INJ IV NR (10:00)
[2021-03-30] MEDS ORDERED: HYDROmorphone 1 MG/1 ML INJ ONE (10:10)
[2021-03-30] MEDS ORDERED: propofoL 200 MG/20 ML VIAL IV ONE (10:11)
[2021-03-30] MEDS ORDERED: LIDOCAINE MPF (2%) 20 MG/1 ML VIAL 5 ML ONE (10:11)
[2021-03-30] MEDS ORDERED: dexAMETHasone 20 MG/5 ML VIAL ONE (10:54)
[2021-03-30] MEDS ORDERED: ONDANSETRON 4 MG/2 ML INJ ONE (10:54)
[2021-03-30] MEDS ORDERED: KETOROLAC 30 MG/1 ML INJ ONE (10:55)
[2021-03-30] MEDS ORDERED: SODIUM CHLORIDE 0.9% IRRIG SOLN 2000 ML IR ONE (11:00)
--- NOTE | 2021-03-30 11:41 | Operative Report ---
Operative Report Operative Report: Date of procedure: March 30, 2021 Pre-operative diagnosis: Abnormal uterine bleeding Post-operative diagnosis: Same as above; synechiae of the uterine cavity Procedure name(s): Hysteroscopy; dilatation and curettage Surgeon: Yuliana Smith M.D. Lozenge Maker: None Anesthesia: General endotracheal anesthesia Findings uterine scarring of the endometrial cavity Pathology: Endometrial curettings Indication: 55-year-old -0-0-2 with a history of abnormal uterine bleeding. The patient had undergone an endometrial biopsy in the office with benign findings. She was scheduled to also undergo an endometrial ablation however the uterine cavity did not appear to be adequate in size to pass the cavity assessment Procedure The patient was taken to the operating room and given general tracheal anesthesia without complication. The patient was prepped and draped in a normal sterile fashion. A bivalve speculum was placed in the patient's vagina single- tooth tenaculums placed on the anterior lip of the cervix. The cervical os was dilated with graduated dilators. A uterine sound was inserted. The hysteroscope was then placed. The internal cervical os was noted to be elongated and mildly stenotic. Insufflation of the uterine cavity was performed with normal saline. Gen. survey of the uterine cavity revealed multiple adhesions in the uterine cavity with overall smaller diameter of the uterine cavity. There was considerable concern that the small size of the uterine cavity would not pass the assessment of the NovaSure device. The NovaSure procedure was not attempted. The hysteroscope was then removed. A sharp curettage of the endometrial surface was performed. The remainder of the vaginal instruments were then removed atraumatically. The patient was then successfully extubated taken to the recovery room. All sponge laps and needle counts were correct 2.
--- NOTE | 2021-03-30 14:16 | Post Anesthesia Evaluation ---
- Post Anesthesia Evaluation Patient Participated: Yes Airway Patent: Yes Stable Respiratory Function: Yes Nausea/Vomiting: No Temp > 96.8F: Yes Pain Manageable: Yes Adequeate Hydration: Yes Anesthesia Complications: No Block Receding Appropriately: Not Applicable Patient on Ventilator: No
[2021-03-30 14:25] VITALS: BP 131/65
== END 2021-03-30 12:35 | disposition home or self-care (01) ==
LOC: OR 08:15
PROVIDERS: ATTEND Obstetrics & Gynecology
DX: N93.8 Other specified abnormal uterine and vaginal bleeding (principal); N95.0 Postmenopausal bleeding; I10 Essential (primary) hypertension; J44.9 Chronic obstructive pulmonary disease, unspecified; G47.30 Sleep apnea, unspecified; K21.9 Gastro-esophageal reflux disease without esophagitis; E66.01 Morbid (severe) obesity due to excess calories; Z83.71 Family history of colonic polyps; Z79.899 Other long term (current) drug therapy; Z98.890 Other specified postprocedural states; Z88.0 Allergy status to penicillin; Z88.1 Allergy status to other antibiotic agents; Z88.5 Allergy status to narcotic agent; Z88.8 Allergy status to other drugs, medicaments and biological substances
CPT/HCPCS: 36415; 58558; 80048; 85027; 88305; A4217; C1782; J1100; J1170; J1885; J2250; J2405; J2704; J7120; U0003